=== PATIENT | female | born 1985 | race Hispanic/Latino ===

== ENCOUNTER 2017-01-02 11:27 | Inpatient (IN) | payer OTHER ==
[~2017-01-02] VITALS: Ht 160 cm; Wt 94.5 kg
[~2017-01-02 11:27] MED LIST: ABIL2TAB2 PO; ADDE25CA PO; AMBI10TA PO; LINZ290C PO; LUNE3TAB48 PO; PROZ10CA7 PO; PROZ20CA11 PO; TOPA100T8 PO; TOPI50TA4 PO; TRIL600T PO; WELLTAB40 PO
[2017-01-02 14:09] LABS: MEAN CORPUSCULAR HEMOGLOBIN 29.6 pg (27.0-33.0); MEAN CORPUSCULAR HGB CONC 34.1 g/dl (32.0-36.5); MEAN CORPUSCULAR VOLUME 86.8 fl (80.0-96.0); RED CELL DISTRIBUTION WIDTH 12.8 % (11.5-14.5); WHITE BLOOD COUNT 8.9 K/mm3 (4.0-10.0)
[2017-01-02 14:20] LABS: AMPHETAMINES LEVEL URINE NEGATIVE (NEGATIVE); BENZODIAZEPINES URINE NEGATIVE (NEGATIVE); COCAINE METABOLITE URINE NEGATIVE (NEGATIVE); CONTROL LINE INT CTR LINE PRESENT; METHADONE URINE NEGATIVE (NEGATIVE); OPIATES URINE NEGATIVE (NEGATIVE); TRICYCLIC ANTIDEPRESS URINE NEGATIVE (NEGATIVE)
[2017-01-02 14:35] LABS: ALBUMIN 2.9 GM/DL (3.2-5.2); ALBUMIN/GLOBULIN RATIO 0.73 (1.00-1.93); ALKALINE PHOSPHATASE 70 U/L (45-117); ALT/SGPT 15 U/L (12-78); ANION GAP 11 MEQ/L (8-16); AST/SGOT 11 U/L (15-37); BILIRUBIN,DIRECT < 0.1 MG/DL (0.0-0.2); BILIRUBIN,TOTAL 0.2 MG/DL (0.2-1.0); BLOOD UREA NITROGEN 6 MG/DL (7-18); CALCIUM LEVEL 8.2 MG/DL (8.5-10.1); CARBON DIOXIDE LEVEL 21 MEQ/L (21-32); CHLORIDE LEVEL 108 MEQ/L (98-107); CREATININE FOR GFR 0.46 MG/DL (0.55-1.02); GLOMERULAR FILTRATION RATE > 60.0 (>60); GLUCOSE, FASTING 82 MG/DL (70-105); POTASSIUM SERUM 3.8 MEQ/L (3.5-5.1); SODIUM LEVEL 140 MEQ/L (136-145); TOTAL PROTEIN 6.9 GM/DL (6.4-8.2)
[2017-01-02 15:24] LABS: HCG, SERUM QUANTITATIVE 1782 MIU/ML
[2017-01-02] MEDS ORDERED: PRENTAB55 PO (18:59)
[2017-01-02] MEDS ORDERED: PROM25TA PO (18:59)
[2017-01-02] MEDS ORDERED: DIPH25CA PO (18:59)
[2017-01-02] MEDS ORDERED: ACET25TA5 PO (18:59)
--- NOTE | 2017-01-02 20:35 | EDDOCDS ---
Physician Documentation [facility] Name: Jayne Rivero Age: 31 yrs Sex: Female : 1985 Arrival Date: 01/02/2017 Time: 11:27 Bed [facility] Private MD: Disposition: 01/02/17 18:25 Hospitalization ordered by Davide Lassiter for Inpatient Admission. Preliminary diagnosis is Major depressive disorder, recurrent. - Bed requested for Admit. - Status is Inpatient Admission. sls1 - Condition is Stable. - Problem is an ongoing problem. - Symptoms have worsened. Historical: - Allergies: Morphine (Anaphylaxis); - Home Meds: 1. Prozac 30mg Oral once daily pt hasn't taken since before she was . (Last dose: Unknown) 2. Topamax Unknown Oral pt hasn't taken since before she was . (Last dose: Unknown) 3. adderal Unknown twice a day pt hasn't taken since before she was . (Last dose: Unknown) 4. Ambien 10 mg Oral tab 1 tab once daily pt hasn't taken since before she was . (Last dose: Unknown) 5. Wellbutrin 300 mg oral tab daily pt hasn't taken since before she was . (Last dose: Unknown) - PMHx: Bipolar disorder; - PSHx: none; - Social history: Smoking status: Patient states former smoker of tobacco. No barriers to communication noted. - Family history: Not pertinent. - : The pt / caregiver states he / she is not on anticoagulants. Home medication list is obtained from the patient. - Exposure Risk Screening:: None identified. 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 3 in. (160.02 cm); Pain 4/10; 15:47 BP 139 / 81; Pulse 88; Resp 18; Temp 98.0(O); Pulse Ox 100% on R/A; Pain 0/10; jmb 20:21 BP 120 / 78; Pulse 99; Resp 18; Temp 98.2(T); Pulse Ox 98% ; Pain 7/10; mas 11:30 Body Mass Index 37.20 (95.25 kg, 160.02 cm) jrd MDM: 11:49 REGULAR DIET PLASTIC HUMPHREY+DIET ordered. EDMS 11:50 REGULAR DIET PED PLASTIC HUMPHREY+DIET ordered. EDMS 13:22 Consult PFS/PSA/Physician'S Assistant ordered. br1 13:22 Consult PFS/PSA/Physician'S Assistant: Patient's case requires discussion with on-call br1 Psychiatrist ordered. 13:22 PSA/PFS to call [employer] Sales Representative, to enter patient data on [place] Safe Act if patient br1 involuntarily admitted or transferred for SI or HI ordered. 13:22 Confirm accurate psychiatric medication list and times of last dosage ordered. br1 13:22 Detain Pt Until Medically/PFS Cleared ordered. br1 13:24 Acetaminophen Level Ordered. EDMS 13:24 Basic Metabolic Profile Ordered. EDMS 13:24 Complete Blood Count Ordered. EDMS 13:24 Drug Eval Toxicology ED Only Ordered. EDMS 13:24 Ethyl Alcohol (ethanol) Ordered. EDMS 13:24 Liver Profile Ordered. EDMS 13:24 Salicylate Level Ordered. EDMS 13:24 Thyroid Stimulating Hormone Ordered. EDMS 13:36 Financial registration complete. mm15 13:36 [facility] Payment Agreement was scanned into [employer] and attached to record. mm15 13:59 Consult PFS/PSA/Physician'S Assistant complete. ml4 14:17 Consult PFS/PSA/Physician'S Assistant: Patient's case requires discussion with on-call ml4 Psychiatrist complete. 14:17 PSA/PFS to call [employer] Sales Representative, to enter patient data on [place] Safe [place] if patient ml4 involuntarily admitted or transferred for SI or HI complete. 15:01 Complete Blood Count Reviewed. br1 15:01 Drug Eval Toxicology ED Only Reviewed. br1 15:36 Acetaminophen Level Reviewed. br1 15:36 Basic Metabolic Profile Reviewed. br1 15:36 Liver Profile Reviewed. br1 15:36 Salicylate Level Reviewed. br1 15:36 Thyroid Stimulating Hormone Reviewed. br1 15:36 Ethyl Alcohol (ethanol) Reviewed. br1 15:36 HCG, SERUM QUANTITATIVE Reviewed. br1 15:36 Consult PFS/PSA/Socail Worker: Cleared medically for eval ordered. br1 15:40 Consult PFS/PSA/Socail Worker: Cleared medically for eval complete. ml4 16:33 REGULAR DIET PLASTIC HUMPHREY+DIET ordered. EDMS 17:43 Admit to [facility]: ordered. EDMS 18:12 REGULAR DIET ordered. EDMS 18:13 [facility] Legal paperwork was scanned into [employer] and attached to record. ml4 Signatures: Dispatcher [employer] EDMS Gina Minaya, PSA PSA ml4 Joshua La MD MD br1 Soumya Luna RN RN sls1 Alistair Nunez mm15 Vick Gomez RN RN mb9 The chart was reviewed and I authenticate all verbal orders and agree with the evaluation and treatment provided.Corrections: (The following items were deleted from the chart) 15:01 14:55 HCG, SERUM QUANTITATIVE+LAB ordered. EDMS EDMS Attachments: 13:36 [id number] Payment Agreement mm15 MTDD
--- NOTE | 2017-01-02 20:36 | EDDOCDS ---
Nurse's Notes [facility] Name: Jayne Rivero Age: 31 yrs Sex: Female : 1985 Arrival Date: 01/02/2017 Time: 11:27 Bed [facility] Private MD: Diagnosis: Major depressive disorder, recurrent Presentation: 01/02 11:34 Presenting complaint: Patient states: "I've been communicating with [facility] and I've mb9 been trying to contact [facility] behavioral health and nobody was helping so Dr Angel sent me here. I'm 22 weeks and I haven't been taking my meds and I've been really depressed and not leaving the house and I have a lot of anxiety. Dr Angel told me to come here so that I can be evaluated by a physician here and if they would put me back on my meds he would be ok with it". pt denies SI/HI at this time. Mental Health Triage Level: Level 1- Pt displays no suicidal or homicidal ideations and does not appear to be a danger to self or others. Adult Sepsis Screening: The patient does not have new or worsening altered mentation. Patient's respiratory rate is less than 22. Systolic blood pressure is greater than 100. Patient has a qSOFA score of 0- Negative Sepsis Screen. Suicide/Homicide risk assessment- the patient denies having any suicidal and/or homicidal ideations and does not present with any other emotional, behavioral or mental health complaints. Status: The patient is a dependent. Transition of care: patient was not received from another setting of care. 11:34 Acuity: CRAIG Level 4 mb9 11:34 Method Of Arrival: Walkin/Carried/Asstd mb9 Triage Assessment: 11:40 General: Appears in no apparent distress, Behavior is appropriate for age. Pain: Denies mb9 pain. HIV screening NA for this visit Offered previously. Respiratory: Airway is patent Respiratory effort is even, unlabored. 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 Prozac 30mg Oral once daily pt hasn't taken since before she was . (Last dose: Unknown) 2. Topamax Unknown Oral pt hasn't taken since before she was . (Last dose: Unknown) 3. adderal Unknown twice a day pt hasn't taken since before she was . (Last dose: Unknown) 4. Ambien 10 mg Oral tab 1 tab once daily pt hasn't taken since before she was . (Last dose: Unknown) 5. Wellbutrin 300 mg oral tab daily pt hasn't taken since before she was . (Last dose: Unknown) - PMHx: Bipolar disorder; - PSHx: none; - Social history: Smoking status: Patient states former smoker of tobacco. No barriers to communication noted. - Family history: Not pertinent. - : The pt / caregiver states he / she is not on anticoagulants. Home medication list is obtained from the patient. - Exposure Risk Screening:: None identified. Screenin:11 Screening information is obtained from the patient. Fall risk: No risks identified. mcp Assistance ADL's: requires no assistance with activities of daily living. Abuse/DV Screen: The patient / caregiver reports he/she is: not in a situation that causes fear, pain or injury. Nutritional screening: No deficits noted. Advance Directives: There is no active DNR order. home support is adequate. Assessment: 12:00 General: Appears in no apparent distress, comfortable, Behavior is cooperative. [facility] Neurological: No deficits noted. Respiratory: Airway is patent Respiratory effort is even, unlabored. Derm: Skin is pink, warm & dry. 13:00 General: Appears in no apparent distress, comfortable, Behavior is cooperative. mcp Neurological: No deficits noted. Respiratory: Airway is patent Respiratory effort is even, unlabored. Derm: Skin is pink, warm & dry. 14:00 General: Appears in no apparent distress, comfortable, Behavior is cooperative. [facility] Neurological: No deficits noted. Respiratory: Airway is patent Respiratory effort is even, unlabored. Derm: Skin is pink, warm & dry. 15:35 General: Appears alert and cooperative . responses of adequate content and demeanor. jmk adequate eye contact. FHT 164 and of good quality. reports adequate movement without pain. comfort measures provided. awaiting dispo.. 16:00 General: Appears in no apparent distress, comfortable, Behavior is appropriate for age, ml6 cooperative. Pain: Denies pain. Neurological: No deficits noted. Level of Consciousness is awake, alert, Oriented to person, place, time, Hedge Trimmer are equal bilaterally. Cardiovascular: No deficits noted. Capillary refill < 3 seconds is brisk in bilateral fingers toes Heart tones S1 S2 present. Respiratory: No deficits noted. Airway is patent Respiratory effort is even, unlabored, Respiratory pattern is regular, symmetrical. GI: No deficits noted. Abdomen is flat, non- distended Bowel sounds present X 4 quads. Abd is soft and non tender X 4 quads. 17:00 Reassessment: Patient appears in no apparent distress at this time. Patient denies pain ml6 at this time. Patient states feeling better. Patient states symptoms have improved. patient sleeping intermittently. 18:01 Reassessment: Patient appears in no apparent distress at this time. Patient denies pain ml6 at this time. Patient states feeling better. Patient states symptoms have improved. no change from previous assessment. 20:09 General: Appears in no apparent distress, comfortable, Behavior is appropriate for age, jo3 cooperative. General: Resting quietly on stretcher with eyes closed. security observing . Neurological: Level of Consciousness is awake, alert, Oriented to person, place, time. Cardiovascular: No deficits noted. Respiratory: Airway is patent Respiratory effort is even, unlabored. Derm: Skin is pink, warm & dry. 20:31 General: Appears in no apparent distress, Behavior is appropriate for age, cooperative. sls1 Neurological: No deficits noted. Respiratory: No deficits noted. Mental Health Eval: 12:22 Mental health consult is initiated at 12:15. Status: The patient is a ml4 dependent. Pt is a . [facility] Behavioral Health: The patient is not an established patient of [facility] Behavioral Health. Referral Information: Evaluation referral is generated by Dr. Angel [facility] . The patient was referred for evaluation because hx of Bipolar Disorder, currently not on any medications due being 22 wks . Pt denies SI and HI upon arrival, however is requesting help due to decompensating. . Subjective: The patients chief complaint is Pt states, "I have feelings of not wanting to live." Pt reports feeling overwhelmed with anxiety and has attempted to get into to [facility] to get placed back on medications, but with no luck. Prior to , pt reports taking Prozac, Wellbutrin, Abilify, Ambien, Adderall, and Topamax, yet no longer has a Psychiatrist. She was previously seeking tx with Dr. Cline \\[facility], however office is now closed. According to pt, OB is not willing to re-start medications without approval of a Psychiatrist. Pt is requesting a voluntarily admission to get started on medication to help relieve depressive and anxiety symptoms. She reports having 4 children(ages 9, 8, 5, and 2) and states she is able to care for them, but not herself. Admits having persistent sadness, poor appetite, increase anxiety, not sleeping, refusing to leave household, and vague SI. Pt appears very depressed at bedside and requesting help before symptoms worsen. . Delusions are denied. Patient's mood is anxious, depressed, Hallucinations are denied. Mental Health history: anxiety, Bipolar Disorder, depression, Mental Health Admissions: None. Current Outpatient Mental Health Services: None. Current living environment is Family / Home Support: adequate, is very supportive. The patient currently lives with his / her children. with his / her spouse, . The patient is . Patient presents to Emergency Department with the following symptoms within the past 2 weeks: agitation, anger, anxiety, decreased appetite, depressed mood, feelings of helplessness/hopelessness, vague SI, no plan "not wanting to live." . poor concentration, sleep disturbance - insomnia. Substance abuse: Pt denies. Mental status exam: Patients appearance is appropriate, Patient's behavior is cooperative, Speech is normal. Affect is appropriate. Mood is angry. anxious. depressed. irritable. Hallucinations are denied. Appetite is poor. Memory is good. Energy level is normal. Content of thought is depressive. due vague SI Thought process is Cognitive level is oriented to person, place, time and situation Patient's insight is fair. Judgement is fair. Rapport with interviewer is guarded. Homicidal ideation is denied. pt continues to express vague SI. Narrative: Awaiting medical clearance... 18:17 Disposition: Medically cleared for disposition by Joshua La MD Psychiatric Consult ml4 is performed by phone with Dr Davide Lassiter MD. [facility] Admission Criteria: The patient is experiencing suicidal ideation. The patient requires continuous observation and/or control to protect self, others or property. The patient's care requires a multi-modal treatment plan under close supervision and coordination due to the complexity and severity of the patient's symptoms. The patient requires administration and monitoring of psychoactive medications by skilled medical providers due to the side effects of the psychoactive medications or significant dosage adjustments. Legal Status: Patient's legal status will be Emergency admission: 939. [place] Safe Act: [place] Safe Act is applicable to this patient. The patient poses a risk to self or other and the Nursing Self Propelled Dredge Operator has been notified. He/She will enter the patient's data. DSM-V Differential Diagnosis: Major Depressive Disorder recurrent episode (F33.0) severe (F33.2). Insurance Pre-Certification: Not Required, [facility]. Pt reports being a , however is requesting to be hospitalized to [facility], rather than to be transferred to [facility]. . Family Notification: Family notified of admission to [facility], Notification was given to Spouse . Narrative: Pt reports having Depression after her 4th child was born. Since pt previously suffered from depression, Dr. Lassiter requested pt be involuntarily hospitalized. Awaiting: transfer to [facility]. Vital Signs: 11:30 BP 151 / 82; Pulse 121; Resp 18; Temp 98.9; Pulse Ox 99% on R/A; Weight 95.25 kg (R); jrd Height 5 ft. 3 in. (160.02 cm); Pain 4/10; 15:47 BP 139 / 81; Pulse 88; Resp 18; Temp 98.0(O); Pulse Ox 100% on R/A; Pain 0/10; jmb 20:21 BP 120 / 78; Pulse 99; Resp 18; Temp 98.2(T); Pulse Ox 98% ; Pain 7/10; mas 11:30 Body Mass Index 37.20 (95.25 kg, 160.02 cm) [facility] Vitals: 11:30 Log In Time: January 02, 2017 at 11:30. [facility] ED Course: 11:29 Patient visited by Saravanan Fallon PCA. jrd 11:29 Patient moved to Waiting jrd 11:31 Patient visited by Saravanan Fallon PCA. jrd 11:38 Triage Initiated mb9 11:41 Patient moved to 30 mb9 13:14 Joshua La MD is Attending Physician. br1 13:22 Patient visited by Joshua La MD. br1 13:36 ID-[facility] Payment Agreement was scanned into [employer] and attached to record. mm15 15:11 The patient / caregiver is instructed regarding the plan of care and ED course. Patient mcp has correct armband on for positive identification. Bed in low position. Call light in reach. Adult w/ patient. 15:11 No IV's were initiated during this patient's visit. No procedures done that require mcp assistance. 15:13 Patient visited by Tammi Steele RN. mcp 15:36 Patient visited by Aguilar Molina,GILMER. jmk 15:59 Patient moved to [facility] pjf 16:04 Property removed, secured in belongings bag- Placed in locker #3. pjf 16:09 Patient visited by Daron Valenzuela Security Aide. pjf 16:11 Patient visited by Tammi Steele RN. mcp 16:32 Patient visited by Daron Valenzuela Security Aide. pjf 16:44 Patient visited by Daron Valenzuela Security Aide. pjf 17:07 Patient visited by Saravanan Fallon PCA. jrd 17:36 Patient visited by Saravanan Fallon PCA. jrd 17:46 Patient visited by Saravanan Fallon PCA. jrd 18:00 Psych Safety Check: Location: Psych Room. Visual Assessment: Cooperative. pjf 18:13 [facility] Legal paperwork was scanned into [employer] and attached to record. ml4 18:14 Patient visited by Saravanan Fallon PCA. jrd 18:25 Davide Lassiter MD is Hospitalizing Provider. br1 18:29 Patient visited by Daron Valenzuela Security Aide. pjf 18:41 Patient visited by Colten Romero. mas 18:56 Patient visited by Colten Romero. mas 19:04 Report received from Robbie May RN, assumed care of pt at this time. tm5 19:19 Patient visited by Daron Valenzuela Security Aide. pjf 19:33 Patient visited by Colten Romero. mas 19:45 Patient visited by Colten Romero. mas 20:00 Patient visited by Colten Romero. mas 20:10 Patient visited by Gina Mccord RN. jo3 20:15 Patient visited by Colten Romero. mas 20:30 Patient visited by Colten Romero. mas Attachments: 18:13 [facility] Legal paperwork ml4 Order Results: Lab Order: Acetaminophen Level; SPEC' 01/02/17 13:40 Test: ACETAMINOPHEN LEVEL; Value: < 2.0; Range: 10.0-30.0; Abnormal: Below low normal; Units: UG/ML; Status: F Lab Order: Basic Metabolic Profile; SPEC' 01/02/17 13:40 Test: GLUCOSE, FASTING; Value: 82; Range: 70-105; Units: MG/DL; Status: F Test: BLOOD UREA NITROGEN; Value: 6; Range: 7-18; Abnormal: Below low normal; Units: MG/DL; Status: F Test: CREATININE FOR GFR; Value: 0.46; Range: 0.55-1.02; Abnormal: Below low normal; Units: MG/DL; Status: F Test: GLOMERULAR FILTRATION RATE; Value: > 60.0; Range: >60; Status: F Test: SODIUM LEVEL; Value: 140; Range: 136-145; Units: MEQ/L; Status: F Test: POTASSIUM SERUM; Value: 3.8; Range: 3.5-5.1; Units: MEQ/L; Status: F Test: CHLORIDE LEVEL; Value: 108; Range: 98-107; Abnormal: Above high normal; Units: MEQ/L; Status: F Test: CARBON DIOXIDE LEVEL; Value: 21; Range: 21-32; Units: MEQ/L; Status: F Test: ANION GAP; Value: 11; Range: 8-16; Units: MEQ/L; Status: F Test: CALCIUM LEVEL; Value: 8.2; Range: 8.5-10.1; Abnormal: Below low normal; Units: MG/DL; Status: F Test Note: ; Units are mL/min/1.73 m2 Chronic Kidney Disease Staging per NKF: Stage I & II GFR >=60 Normal to Mildly Decreased Stage III GFR 30-59 Moderately Decreased Stage IV GFR 15-29 Severely Decreased Stage V GFR <15 Very Little GFR Left ESRD GFR <15 on TELEPHONE MECHANIC Lab Order: Complete Blood Count; SPEC' 01/02/17 13:40 Test: WHITE BLOOD COUNT; Value: 8.9; Range: 4.0-10.0; Units: K/mm3; Status: F Test: RED BLOOD COUNT; Value: 4.04; Range: 4.00-5.40; Units: M/mm3; Status: F Test: HEMOGLOBIN; Value: 12.0; Range: 12.0-16.0; Units: g/dl; Status: F Test: HEMATOCRIT; Value: 35.1; Range: 36.0-47.0; Abnormal: Below low normal; Units: %; Status: F Test: MEAN CORPUSCULAR VOLUME; Value: 86.8; Range: 80.0-96.0; Units: fl; Status: F Test: MEAN CORPUSCULAR HEMOGLOBIN; Value: 29.6; Range: 27.0-33.0; Units: pg; Status: F Test: MEAN CORPUSCULAR HGB CONC; Value: 34.1; Range: 32.0-36.5; Units: g/dl; Status: F Test: RED CELL DISTRIBUTION WIDTH; Value: 12.8; Range: 11.5-14.5; Units: %; Status: F Test: PLATELET COUNT, AUTOMATED; Value: 185; Range: 150-450; Units: k/mm3; Status: F Lab Order: Drug Eval Toxicology ED Only; SPEC'M 01/02/17 13:41 Test: AMPHETAMINES LEVEL URINE; Value: NEGATIVE; Range: NEGATIVE; Status: F Test: BARBITURATES URINE; Value: NEGATIVE; Range: NEGATIVE; Status: F Test: BENZODIAZEPINES URINE; Value: NEGATIVE; Range: NEGATIVE; Status: F Test: CANNABINOIDS URINE; Value: NEGATIVE; Range: NEGATIVE; Status: F Test: COCAINE METABOLITE URINE; Value: NEGATIVE; Range: NEGATIVE; Status: F Test: METHADONE URINE; Value: NEGATIVE; Range: NEGATIVE; Status: F Test: OPIATES URINE; Value: NEGATIVE; Range: NEGATIVE; Status: F Test: TRICYCLIC ANTIDEPRESS URINE; Value: NEGATIVE; Range: NEGATIVE; Status: F Test Note: ; ALL PRESUMPTIVE POSITIVE FINDINGS ARE UNCONFIRMED NORMAL VALUES THRESHOLD IN NG/ML AMPHETAMINES 1000 METHAMPHETAMINES 1000 BARBITURATES 300 BENZODIAZEPINES 300 CANNABINOIDS (THC) 50 COCAINE METABOLITE 300 METHADONE 300 OPIATES 300 PHENCYCLIDINE 25 TRICYCLIC ANTIDEPRESSANTS 1000 RESULTS ARE FOR MEDICAL PURPOSES ONLY. ALL URINE SPECIMENS WILL BE SAVED FOR 3 DAYS. IF CONFIRMATION OF A PRESUMPTIVE POSTIVE SCREEN RESULT IS DESIRED, CALL CHEMISTRY ([phone]) AND REQUEST URINE TO BE SENT TO REFERENCE LAB. FOR A LIST OF CLOSELY RELATED COMPOUNDS PLEASE CALL THE LAB. Lab Order: Ethyl Alcohol (ethanol); [facility] 01/02/17 13:40 Test: ETHYL ALCOHOL (ETHANOL); Value: < 0.003; Range: 0.000-0.010; Units: %; Status: F Lab Order: Liver Profile; [facility] 01/02/17 13:40 Test: AST/SGOT; Value: 11; Range: 15-37; Abnormal: Below low normal; Units: U/L; Status: F Test: ALT/SGPT; Value: 15; Range: 12-78; Units: U/L; Status: F Test: ALKALINE PHOSPHATASE; Value: 70; Range: 45-117; Units: U/L; Status: F Test: BILIRUBIN,TOTAL; Value: 0.2; Range: 0.2-1.0; Units: MG/DL; Status: F Test: BILIRUBIN,DIRECT; Value: < 0.1; Range: 0.0-0.2; Units: MG/DL; Status: F Test: TOTAL PROTEIN; Value: 6.9; Range: 6.4-8.2; Units: GM/DL; Status: F Test: ALBUMIN; Value: 2.9; Range: 3.2-5.2; Abnormal: Below low normal; Units: GM/DL; Status: F Test: ALBUMIN/GLOBULIN RATIO; Value: 0.73; Range: 1.00-1.93; Abnormal: Below low normal; Status: F Lab Order: Salicylate Level; [facility] 01/02/17 13:40 Test: SALICYLATE LEVEL; Value: < 1.7; Range: 5.0-30.0; Abnormal: Below low normal; Units: MG/DL; Status: F Lab Order: Thyroid Stimulating Hormone; [facility] 01/02/17 13:40 Test: THYROID STIMULATING HORMONE; Value: 0.300; Range: 0.358-3.740; Abnormal: Below low normal; Units: uIU/ML; Status: F Lab Order: HCG, SERUM QUANTITATIVE; [facility] 01/02/17 13:40 Test: HCG, SERUM QUANTITATIVE; Value: 1782; Units: MIU/ML; Status: F Test Note: ; GESTATIONAL AGE APPROXIMATE HCG RANGE (MIU/ML) 0.2-1 WEEK 5-50 1-2 WEEKS 50-500 2-3 WEEKS 100-5,000 3-4 WEEKS 500-10,000 4-5 WEEKS 1,000-50,000 5-6 WEEKS 10,000-100,000 6-8 WEEKS 15,000-200,000 2-3 MONTHS 10,000-100,000 NON FEMALES LESS THAN 3.0 Patient samples may contain human heterophilic antibodies that could react with immunoassays to give falsely elevated or depressed results. This assay has been designed to minimize interference from heterophilic antibodies. Elevated hCG levels have also been associated with trophoblastic disease and nontrophoblastic neoplasms. The possibility of having these diseases should be considered before a diagnosis of is made. This test is not intended for use as a surrogate marker for aiding in the diagnosis or monitoring the treatment of cancer patients. [employer] [place] methodology. Outcome: 18:25 Decision to Hospitalize by Provider. br1 20:30 Discharge Assessment: Patient awake, alert and oriented x 3. No cognitive and/or sls1 functional deficits noted. Patient verbalized understanding of disposition instructions. patient administered narcotics - no. The following High Risk Discharge criteria are identified: Yes, psych admit. Condition: stable. No special radiology studies were completed. 20:34 Patient left the ED. sls1 Signatures: Aguilar MolinaRN Tammi Gay RN GILMER [facility] Daron Valenzuela, Security Aide MargueriteGina TilleyRN RN jo3 Gina Mniaya, PSA PSA ml4 Joshua La MD MD br1 Michael Barragan RN RN ml6 Colten Romero Shannon RN RN sls1 Alistair Nunez mm15 Elliot Thayer RN RN Saravanan Rodríguez, PAULY METAL POLISHER AND BUFFER APPRENTICE Vick Astudillo,GILMER RN mb9 Maria T Reis,RN RN tm5 Corrections: (The following items were deleted from the chart) 15:01 14:57 HCG, SERUM QUANTITATIVE+LAB sent. [facility] EDNM 15:44 12:22 Status: The patient is a dependent. ml4 ml4 MTDD
[2017-01-02 21:07] VITALS: BP 138/80
[2017-01-02] MEDS: ACETAMINOPHEN TAB 650MG DOSE (2X325MG) PO PRN (22:54)
[2017-01-03 07:00] VITALS: BP 118/58
[2017-01-03] MEDS: ACETAMINOPHEN TAB 650MG DOSE (2X325MG) PO PRN ×2 (07:47→20:14)
[2017-01-03] MEDS: FLUoxetine 10 MG CAP PO SCH (11:29)
[2017-01-03] MEDS: PRENATAL VITAMIN TAB PO SCH (11:29)
--- NOTE | 2017-01-03 11:50 | HPEPDOC ---
Medical History and Physical Date of Admission Jan 02, 2017 at 20:48 History and Physical PCP: Prashant ATTENDING: Dr. Jon Cochran HPI: 31yoF admitted to [facility] for MDD, being medically examined today. Patient is currently 22 weeks . She is following with [facility] TECHNICIAN. She was seen by Dr. Angel 01/02/17. Her next appointment is scheduled 01/18/17. She states she has been feeling well. She has had no complications. She has been having some nausea. She has reflux symptoms and belching. She is being treated with Tums per Pt. She states she has had abnormal thyroid function test during , endocrine referral is pending through her PCP at [facility]. She currently has a oral herpes lesion which is resolving on her left upper lip. Denies any fevers, chills, weakness, fatigue, SAUCEDO, CP, SOB, cough, palpitations, abdominal pain, N/V/D or changes in bowel or bladder habits. 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 ROS: As noted in HPI, otherwise 11pt ROS of systems reviewed and remarkable only for LMP 8/16, currently 22 weeks . PE: GEN: 31yoF, appears stated age. Well-nourished, well developed. No acute distress. Alert and oriented x 3. Pleasant, interactive. HEENT: Normocephalic, atraumatic. Pupils are equal, round, and reactive to light. Extraocular movements are intact. No nystagmus appreciated. Sclera are nonicteric. Conjunctiva without injection. Nose midline. Nasal turbinates without bogginess. EACs both patent BL. TMs both visualized and melvin with good cone of light, no bulging or erythema. No facial asymmetry. Moist mucous membranes. Dentition fair. Pharynx pink and moist, no cobblestoning. Neck supple , trachea midline. No lymphadenopathy or thyromegaly appreciated. CHEST: Regular rate and rhythm, +S1, +S2 LUNGS: Clear to auscultation bilaterally. No wheezes, rales, or rhonchi. Breathing appears symmetric and easy. Patient is speaking in full sentences. No accessory muscle use. ABD: protuberant,Round, soft, non-tender, non-distended. +Bowel sounds throughout. No rebound or guarding. No costovertebral angle tenderness. EXT: Pulses 2+ bilaterally dorsalis pedis and radial. No lower extremity edema appreciated. SKIN: [place], dry, warm. Capillary refill <2sec. No rashes. NEURO: Alert and oriented x 3. Cranial nerves III-XII are intact. No focal deficits appreciated. EK03/02/16 SR 84 bpm. A&P: 31yoF admitted to [facility] for MDD 1. Psych. Plan per Psychiatry. EKG on file. 2. . Currently 22 weeks. 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 Last appointment 01/02/17. Next appointment scheduled 01/18/17. Continue with vitamin. 3. Abnormal TFT during . This is being followed by PCP at [facility]. She has been referred to Endocrine through her PCP at [place], referral pending 3. GERD. Continue Tums BID as needed. 4. Follow up with PCP on discharge. [facility]. 5. Staff member present throughout exam, Allison SCHERER. Vital Signs Vital Signs Label Value Date Time Patient Temperature 97.2 degrees F 01/03/17 0700 Temperature Source Tympanic 01/03/17 0700 Pulse 97 01/03/17 0700 Respiratory Rate 18 bpm 01/03/17 0700 Blood Pressure Assessment 118/58 (78) 01/03/17 0700 Laboratory Data Labs 24H Laboratory Tests 2 01/02/17 13:40: Acetaminophen Level < 2.0L, Aspartate Amino Transf (AST/SGOT) 11L, Alanine Aminotransferase (ALT/SGPT) 15, Alkaline Phosphatase 70, Total Bilirubin 0.2, Direct Bilirubin < 0.1, Albumin 2.9L, Albumin/Globulin Ratio 0.73L, Anion Gap 11 , Calcium Level 8.2L, Ethyl Alcohol Level < 0.003, Glomerular Filtration Rate > 60.0, Human Chorionic Gonadotropin, Quant 1782, Salicylates Level < 1.7L, Thyroid Stimulating Hormone (TSH) 0.300L, Total Protein 6.9 01/02/17 13:41: Urine Amphetamine Level NEGATIVE, Urine Benzodiazepines Screen NEGATIVE, Urine Cannabinoids NEGATIVE, Urine Cocaine Metabolite NEGATIVE, Urine Opiates Screen NEGATIVE, Urine Barbiturates, Qualitative NEGATIVE, Urine Methadone Screen NEGATIVE, Urine Tricyclic Antidepressants NEGATIVE CBC/BMP Laboratory Tests 01/02/17 13:40 Red Blood Count 4.04, Mean Corpuscular Volume 86.8, Mean Corpuscular Hemoglobin 29.6, Mean Corpuscular Hemoglobin Concent 34.1, Red Cell Distribution Width 12.8 Home Medications Scheduled Multivitamins/ ( 19) 1 Tab Tab 1 TAB PO DAILY Scheduled PRN (Acetaminophen Pm Extra St 500-25 mg) 1 Tab Tab 1 TAB PO QHS PRN PRN SLEEP Diphenhydramine HCl (Diphenhydramine HCl) 25 Mg Cap 25 MG PO QHS PRN PRN SLEEP Promethazine HCl (Promethazine HCl) 25 Mg Tab 25 MG PO QHS PRN PRN SLEEP Allergies Coded Allergies: Morphine (Verified Allergy, Severe, HIVES AND TROUBLE BREATHING, 01/24/16) Edwige Perdomo Jan 03, 2017 11:50
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
[2017-01-03] MEDS: CALCIUM CARBONATE 500 MG CHEW U/D PO PRN ×2 (15:21→20:14)
[2017-01-03 18:00] VITALS: BP 109/58
[2017-01-03] MEDS: diphenhydrAMINE 50 MG CAP PO PRN (20:14)
[2017-01-04 06:24] VITALS: BP 113/56
[2017-01-04] MEDS: CALCIUM CARBONATE 500 MG CHEW U/D PO PRN ×3 (08:58→20:33)
[2017-01-04] MEDS: FLUoxetine 10 MG CAP PO SCH (08:58)
[2017-01-04] MEDS: PRENATAL VITAMIN TAB PO SCH (08:58)
[2017-01-04] MEDS ORDERED: ONDANSETRON 4 MG TAB (S0181) PO PRN (10:30)
[2017-01-04 18:00] VITALS: BP 107/59
--- NOTE | 2017-01-04 19:10 | IPN ---
DATE: 01/04/2017 HISTORY: A 31-year-old female with history of bipolar disorder and depression. She is 22 weeks . Was admitted with symptoms of severe depression, overwhelmed anxiety, and suicidal thoughts. MEDICATIONS: - Prozac 10 mg by mouth every morning - Benadryl 50 mg by mouth at bedtime as needed for insomnia SUBJECTIVE: "I feel about the same." OBJECTIVE: No major changes from yesterday. The patient continues to feel depressed, anxious, with psychomotor retardation, poor, soft and monotone speech. She is tolerating well Prozac. Was able to sleep well with 50 mg of Benadryl last night. No evidence of psychotic symptoms. No auditory or visual hallucinations or delusions. MENTAL STATUS EXAMINATION: The patient is dressed in [facility]. The patient is cooperative during the exam. Has fair eye contact. Speech is soft and monotone. Mood is depressed and anxious. Affect is restricted. No delusions or hallucinations. Memory is fair. The patient is fully oriented. Associations are intact. Thinking is logical. Thought content is appropriate. The patient is able to contract for safety in our unit. Insight and judgment are fair. ASSESSMENT: Bipolar disorder, depressed episode. PLAN: 1. Continue with Prozac 10 mg by mouth every morning. 2. Continue with Benadryl 50 mg by mouth at bedtime. 3. Continue close observation.
[2017-01-04] MEDS: ACETAMINOPHEN TAB 650MG DOSE (2X325MG) PO PRN (20:32)
[2017-01-04] MEDS: diphenhydrAMINE 50 MG CAP PO PRN (20:32)
--- NOTE | 2017-01-04 21:35 | EDDOCDS ---
Physician Documentation [facility] Name: Jayne [place] Age: 31 yrs Sex: Female : 1985 Arrival Date: 01/02/2017 Time: 11:27 Bed [facility] Private MD: Disposition: 01/02/17 18:25 Hospitalization ordered by [facility] Lassiter for Inpatient Admission. Preliminary diagnosis is Major depressive disorder, recurrent. - Bed requested for Admit. - Status is Inpatient Admission. sls1 - Condition is Stable. - Problem is an ongoing problem. - Symptoms have worsened. Historical: - Allergies: Morphine (Anaphylaxis); - Home Meds: 1. Prozac 30mg Oral once daily pt hasn't taken since before she was . (Last dose: Unknown) 2. Topamax Unknown Oral pt hasn't taken since before she was . (Last dose: Unknown) 3. adderal Unknown twice a day pt hasn't taken since before she was . (Last dose: Unknown) 4. Ambien 10 mg Oral tab 1 tab once daily pt hasn't taken since before she was . (Last dose: Unknown) 5. Wellbutrin 300 mg oral tab daily pt hasn't taken since before she was . (Last dose: Unknown) - PMHx: Bipolar disorder; - PSHx: none; - Social history: Smoking status: Patient states former smoker of tobacco. No barriers to communication noted. - Family history: Not pertinent. - : The pt / caregiver states he / she is not on anticoagulants. Home medication list is obtained from the patient. - Exposure Risk Screening:: None identified. 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 3 in. (160.02 cm); Pain 4/10; 15:47 BP 139 / 81; Pulse 88; Resp 18; Temp 98.0(O); Pulse Ox 100% on R/A; Pain 0/10; jmb 20:21 BP 120 / 78; Pulse 99; Resp 18; Temp 98.2(T); Pulse Ox 98% ; Pain 7/10; mas 11:30 Body Mass Index 37.20 (95.25 kg, 160.02 cm) jrd MDM: 11:49 REGULAR DIET PLASTIC HUMPHREY+DIET ordered. EDMS 11:50 REGULAR DIET PED PLASTIC HUMPHREY+DIET ordered. EDMS 13:22 Consult PFS/PSA/Wood Barker ordered. br1 13:22 Consult PFS/PSA/Wood Barker: Patient's case requires discussion with on-call br1 Psychiatrist ordered. 13:22 PSA/PFS to call Nursing [employer]ricator, to enter patient data on [place] Safe Act if patient br1 involuntarily admitted or transferred for SI or HI ordered. 13:22 Confirm accurate psychiatric medication list and times of last dosage ordered. br1 13:22 Detain Pt Until Medically/PFS Cleared ordered. br1 13:24 Acetaminophen Level Ordered. EDMS 13:24 Basic Metabolic Profile Ordered. EDMS 13:24 Complete Blood Count Ordered. EDMS 13:24 Drug Eval Toxicology ED Only Ordered. EDMS 13:24 Ethyl Alcohol (ethanol) Ordered. EDMS 13:24 Liver Profile Ordered. EDMS 13:24 Salicylate Level Ordered. EDMS 13:24 Thyroid Stimulating Hormone Ordered. EDMS 13:36 Financial registration complete. mm15 13:36 [facility] Payment Agreement was scanned into [employer] and attached to record. mm15 13:59 Consult PFS/PSA/Wood Barker complete. ml4 14:17 Consult PFS/PSA/Wood Barker: Patient's case requires discussion with on-call ml4 Psychiatrist complete. 14:17 PSA/PFS to call Nursing [employer] Steel Fabricator, to enter patient data on [place] Safe [place] if patient ml4 involuntarily admitted or transferred for SI or HI complete. 15:01 Complete Blood Count Reviewed. br1 15:01 Drug Eval Toxicology ED Only Reviewed. br1 15:36 Acetaminophen Level Reviewed. br1 15:36 Basic Metabolic Profile Reviewed. br1 15:36 Liver Profile Reviewed. br1 15:36 Salicylate Level Reviewed. br1 15:36 Thyroid Stimulating Hormone Reviewed. br1 15:36 Ethyl Alcohol (ethanol) Reviewed. br1 15:36 HCG, SERUM QUANTITATIVE Reviewed. br1 15:36 Consult PFS/PSA/Socail Worker: Cleared medically for eval ordered. br1 15:40 Consult PFS/PSA/Socail Worker: Cleared medically for eval complete. ml4 16:33 REGULAR DIET PLASTIC HUMPHREY+DIET ordered. EDMS 17:43 Admit to [facility]: ordered. EDMS 18:12 REGULAR DIET ordered. EDMS 18:13 [facility] Legal paperwork was scanned into [employer] and attached to record. ml4 01/03 13:06 T-Sheet-- Draft Copy was scanned into [employer] and attached to record. gb Signatures: Dispatcher [employer] EDMS Halima Hernández, Reg Reg gb Rei, Gina, PSA PSA ml4 Joshua La MD MD br1 Soumya Luna RN RN sls1 Alistair Nunez mm15 Vick Gomez,RN RN mb9 The chart was reviewed and I authenticate all verbal orders and agree with the evaluation and treatment provided.Corrections: (The following items were deleted from the chart) 01/02 15:01 14:55 HCG, SERUM QUANTITATIVE+LAB ordered. EDMS EDMS Attachments: 13:36 [place] Payment Agreement mm15 01/03 13:06 T-Sheet-- Draft Copy gb Chart Complete MTDD
--- NOTE | 2017-01-04 21:35 | EDDOCDS ---
Nurse's Notes [facility] Name: Jayne Rivero Age: 31 yrs Sex: Female : 1985 Arrival Date: 01/02/2017 Time: 11:27 Bed [facility] Private MD: Diagnosis: Major depressive disorder, recurrent Presentation: 01/02 11:34 Presenting complaint: Patient states: "I've been communicating with [facility] and I've mb9 been trying to contact [facility] behavioral health and nobody was helping so Dr Angel sent me here. I'm 22 weeks and I haven't been taking my meds and I've been really depressed and not leaving the house and I have a lot of anxiety. Dr Angel told me to come here so that I can be evaluated by a physician here and if they would put me back on my meds he would be ok with it". pt denies SI/HI at this time. Mental Health Triage Level: Level 1- Pt displays no suicidal or homicidal ideations and does not appear to be a danger to self or others. Adult Sepsis Screening: The patient does not have new or worsening altered mentation. Patient's respiratory rate is less than 22. Systolic blood pressure is greater than 100. Patient has a qSOFA score of 0- Negative Sepsis Screen. Suicide/Homicide risk assessment- the patient denies having any suicidal and/or homicidal ideations and does not present with any other emotional, behavioral or mental health complaints. Status: The patient is a dependent. Transition of care: patient was not received from another setting of care. 11:34 Acuity: CRAIG Level 4 mb9 11:34 Method Of Arrival: Walkin/Carried/Asstd mb9 Triage Assessment: 11:40 General: Appears in no apparent distress, Behavior is appropriate for age. Pain: Denies mb9 pain. HIV screening NA for this visit Offered previously. Respiratory: Airway is patent Respiratory effort is even, unlabored. CREDIT CONTROL MANAGER: 11:40 LMP 06/2016 mb9 Historical: - Allergies: Morphine (Anaphylaxis); - Home Meds: 1. Prozac 30mg Oral once daily pt hasn't taken since before she was . (Last dose: Unknown) 2. Topamax Unknown Oral pt hasn't taken since before she was . (Last dose: Unknown) 3. adderal Unknown twice a day pt hasn't taken since before she was . (Last dose: Unknown) 4. Ambien 10 mg Oral tab 1 tab once daily pt hasn't taken since before she was . (Last dose: Unknown) 5. Wellbutrin 300 mg oral tab daily pt hasn't taken since before she was . (Last dose: Unknown) - PMHx: Bipolar disorder; - PSHx: none; - Social history: Smoking status: Patient states former smoker of tobacco. No barriers to communication noted. - Family history: Not pertinent. - : The pt / caregiver states he / she is not on anticoagulants. Home medication list is obtained from the patient. - Exposure Risk Screening:: None identified. Screenin:11 Screening information is obtained from the patient. Fall risk: No risks identified. mcp Assistance ADL's: requires no assistance with activities of daily living. Abuse/DV Screen: The patient / caregiver reports he/she is: not in a situation that causes fear, pain or injury. Nutritional screening: No deficits noted. Advance Directives: There is no active DNR order. home support is adequate. Assessment: 12:00 General: Appears in no apparent distress, comfortable, Behavior is cooperative. [facility] Neurological: No deficits noted. Respiratory: Airway is patent Respiratory effort is even, unlabored. Derm: Skin is pink, warm & dry. 13:00 General: Appears in no apparent distress, comfortable, Behavior is cooperative. mcp Neurological: No deficits noted. Respiratory: Airway is patent Respiratory effort is even, unlabored. Derm: Skin is pink, warm & dry. 14:00 General: Appears in no apparent distress, comfortable, Behavior is cooperative. [facility] Neurological: No deficits noted. Respiratory: Airway is patent Respiratory effort is even, unlabored. Derm: Skin is pink, warm & dry. 15:35 General: Appears alert and cooperative . responses of adequate content and demeanor. jmk adequate eye contact. FHT 164 and of good quality. reports adequate movement without pain. comfort measures provided. awaiting dispo.. 16:00 General: Appears in no apparent distress, comfortable, Behavior is appropriate for age, ml6 cooperative. Pain: Denies pain. Neurological: No deficits noted. Level of Consciousness is awake, alert, Oriented to person, place, time, Bobbin Cleaner are equal bilaterally. Cardiovascular: No deficits noted. Capillary refill < 3 seconds is brisk in bilateral fingers toes Heart tones S1 S2 present. Respiratory: No deficits noted. Airway is patent Respiratory effort is even, unlabored, Respiratory pattern is regular, symmetrical. GI: No deficits noted. Abdomen is flat, non- distended Bowel sounds present X 4 quads. Abd is soft and non tender X 4 quads. 17:00 Reassessment: Patient appears in no apparent distress at this time. Patient denies pain ml6 at this time. Patient states feeling better. Patient states symptoms have improved. patient sleeping intermittently. 18:01 Reassessment: Patient appears in no apparent distress at this time. Patient denies pain ml6 at this time. Patient states feeling better. Patient states symptoms have improved. no change from previous assessment. 20:09 General: Appears in no apparent distress, comfortable, Behavior is appropriate for age, jo3 cooperative. General: Resting quietly on stretcher with eyes closed. security observing . Neurological: Level of Consciousness is awake, alert, Oriented to person, place, time. Cardiovascular: No deficits noted. Respiratory: Airway is patent Respiratory effort is even, unlabored. Derm: Skin is pink, warm & dry. 20:31 General: Appears in no apparent distress, Behavior is appropriate for age, cooperative. sls1 Neurological: No deficits noted. Respiratory: No deficits noted. Mental Health Eval: 12:22 Mental health consult is initiated at 12:15. Status: The patient is a ml4 dependent. Pt is a . [facility]: The patient is not an established patient of [facility]. Referral Information: Evaluation referral is generated by Dr. Angel \\[facility] . The patient was referred for evaluation because hx of Bipolar Disorder, currently not on any medications due being 22 wks . Pt denies SI and HI upon arrival, however is requesting help due to decompensating. . Subjective: The patients chief complaint is Pt states, "I have feelings of not wanting to live." Pt reports feeling overwhelmed with anxiety and has attempted to get into to [facility] to get placed back on medications, but with no luck. Prior to , pt reports taking Prozac, Wellbutrin, Abilify, Ambien, Adderall, and Topamax, yet no longer has a Psychiatrist. She was previously seeking tx with Dr. Cline [facility], however office is now closed. According to pt, OB is not willing to re-start medications without approval of a Psychiatrist. Pt is requesting a voluntarily admission to get started on medication to help relieve depressive and anxiety symptoms. She reports having 4 children(ages 9, 8, 5, and 2) and states she is able to care for them, but not herself. Admits having persistent sadness, poor appetite, increase anxiety, not sleeping, refusing to leave household, and vague SI. Pt appears very depressed at bedside and requesting help before symptoms worsen. . Delusions are denied. Patient's mood is anxious, depressed, Hallucinations are denied. Mental Health history: anxiety, Bipolar Disorder, depression, Mental Health Admissions: None. Current Outpatient Mental Health Services: None. Current living environment is Family / Home Support: adequate, is very supportive. The patient currently lives with his / her children. with his / her spouse, . The patient is . Patient presents to Emergency Department with the following symptoms within the past 2 weeks: agitation, anger, anxiety, decreased appetite, depressed mood, feelings of helplessness/hopelessness, vague SI, no plan "not wanting to live." . poor concentration, sleep disturbance - insomnia. Substance abuse: Pt denies. Mental status exam: Patients appearance is appropriate, Patient's behavior is cooperative, Speech is normal. Affect is appropriate. Mood is angry. anxious. depressed. irritable. Hallucinations are denied. Appetite is poor. Memory is good. Energy level is normal. Content of thought is depressive. due vague SI Thought process is Cognitive level is oriented to person, place, time and situation Patient's insight is fair. Judgement is fair. Rapport with interviewer is guarded. Homicidal ideation is denied. pt continues to express vague SI. Narrative: Awaiting medical clearance... 18:17 Disposition: Medically cleared for disposition by Joshua La MD Psychiatric Consult ml4 is performed by phone with Dr Davide Lassiter MD. [facility] Admission Criteria: The patient is experiencing suicidal ideation. The patient requires continuous observation and/or control to protect self, others or property. The patient's care requires a multi-modal treatment plan under close supervision and coordination due to the complexity and severity of the patient's symptoms. The patient requires administration and monitoring of psychoactive medications by skilled medical providers due to the side effects of the psychoactive medications or significant dosage adjustments. Legal Status: Patient's legal status will be Emergency admission: 939. [place] Safe Act: [place] Safe Act is applicable to this patient. The patient poses a risk to self or other and the Nursing Industrial Engineer has been notified. He/She will enter the patient's data. DSM-V Differential Diagnosis: Major Depressive Disorder recurrent episode (F33.0) severe (F33.2). Insurance Pre-Certification: Not Required, [facility]care. Pt reports being a , however is requesting to be hospitalized to [facility], rather than to be transferred to [facility]. . Family Notification: Family notified of admission to [facility], Notification was given to Spouse . Narrative: Pt reports having Depression after her 4th child was born. Since pt previously suffered from depression, Dr. Lassiter requested pt be involuntarily hospitalized. Awaiting: transfer to [facility]. Vital Signs: 11:30 BP 151 / 82; Pulse 121; Resp 18; Temp 98.9; Pulse Ox 99% on R/A; Weight 95.25 kg (R); jrd Height 5 ft. 3 in. (160.02 cm); Pain 4/10; 15:47 BP 139 / 81; Pulse 88; Resp 18; Temp 98.0(O); Pulse Ox 100% on R/A; Pain 0/10; jmb 20:21 BP 120 / 78; Pulse 99; Resp 18; Temp 98.2(T); Pulse Ox 98% ; Pain 7/10; mas 11:30 Body Mass Index 37.20 (95.25 kg, 160.02 cm) [facility] Vitals: 11:30 Log In Time: January 02, 2017 at 11:30. [facility] ED Course: 11:29 Patient visited by Saravanan Fallon PCA. jrd 11:29 Patient moved to Waiting jrd 11:31 Patient visited by Saravanan Fallon PCA. jrd 11:38 Triage Initiated mb9 11:41 Patient moved to 30 mb9 13:14 Joshua La MD is Attending Physician. br1 13:22 Patient visited by Joshua La MD. br1 13:36 [facility] Payment Agreement was scanned into [employer] and attached to record. mm15 15:11 The patient / caregiver is instructed regarding the plan of care and ED course. Patient mcp has correct armband on for positive identification. Bed in low position. Call light in reach. Adult w/ patient. 15:11 No IV's were initiated during this patient's visit. No procedures done that require mcp assistance. 15:13 Patient visited by Tammi Steele RN. mcp 15:36 Patient visited by Aguilar Molina,GILMER. jmk 15:59 Patient moved to [facility] pjf 16:04 Property removed, secured in belongings bag- Placed in locker #3. pjf 16:09 Patient visited by Daron Valenzuela Security Aide. pjf 16:11 Patient visited by Tammi Steele RN. mcp 16:32 Patient visited by Daron Valenzuela Security Aide. pjf 16:44 Patient visited by Daron Valenzuela Security Aide. pjf 17:07 Patient visited by Saravanan Fallon PCA. jrd 17:36 Patient visited by Saravanan Fallon PCA. jrd 17:46 Patient visited by Saravanan Fallon PCA. jrd 18:00 Psych Safety Check: Location: Psych Room. Visual Assessment: Cooperative. pjf 18:13 [facility] Legal paperwork was scanned into Intell[employer] and attached to record. ml4 18:14 Patient visited by Saravanan Fallon PCA. jrd 18:25 Davide Lassiter MD is Hospitalizing Provider. br1 18:29 Patient visited by Daron Valenzuela Security Aide. pjf 18:41 Patient visited by Colten Romero. mas 18:56 Patient visited by Colten Romero. mas 19:04 Report received from Robbie May RN, assumed care of pt at this time. tm5 19:19 Patient visited by Daron Valenzuela Security Aide. pjf 19:33 Patient visited by Colten Romero. mas 19:45 Patient visited by Colten Romero. mas 20:00 Patient visited by Colten Romero. mas 20:10 Patient visited by Gina Mccord RN. jo3 20:15 Patient visited by Colten Romero. mas 20:30 Patient visited by Colten Romero. mas 01/03 13:06 T-Sheet-- Draft Copy was scanned into Intellinote and attached to record. gb Attachments: 18:13 E Legal paperwork ml4 Order Results: Lab Order: Acetaminophen Level; SPEC'M 01/02/17 13:40 Test: ACETAMINOPHEN LEVEL; Value: < 2.0; Range: 10.0-30.0; Abnormal: Below low normal; Units: UG/ML; Status: F Lab Order: Basic Metabolic Profile; SPEC'M 01/02/17 13:40 Test: GLUCOSE, FASTING; Value: 82; Range: 70-105; Units: MG/DL; Status: F Test: BLOOD UREA NITROGEN; Value: 6; Range: 7-18; Abnormal: Below low normal; Units: MG/DL; Status: F Test: CREATININE FOR GFR; Value: 0.46; Range: 0.55-1.02; Abnormal: Below low normal; Units: MG/DL; Status: F Test: GLOMERULAR FILTRATION RATE; Value: > 60.0; Range: >60; Status: F Test: SODIUM LEVEL; Value: 140; Range: 136-145; Units: MEQ/L; Status: F Test: POTASSIUM SERUM; Value: 3.8; Range: 3.5-5.1; Units: MEQ/L; Status: F Test: CHLORIDE LEVEL; Value: 108; Range: 98-107; Abnormal: Above high normal; Units: MEQ/L; Status: F Test: CARBON DIOXIDE LEVEL; Value: 21; Range: 21-32; Units: MEQ/L; Status: F Test: ANION GAP; Value: 11; Range: 8-16; Units: MEQ/L; Status: F Test: CALCIUM LEVEL; Value: 8.2; Range: 8.5-10.1; Abnormal: Below low normal; Units: MG/DL; Status: F Test Note: ; Units are mL/min/1.73 m2 Chronic Kidney Disease Staging per NKF: Stage I & II GFR >=60 Normal to Mildly Decreased Stage III GFR 30-59 Moderately Decreased Stage IV GFR 15-29 Severely Decreased Stage V GFR <15 Very Little GFR Left ESRD GFR <15 on TROUBLE LOCATER Lab Order: Complete Blood Count; SPEC'M 01/02/17 13:40 Test: WHITE BLOOD COUNT; Value: 8.9; Range: 4.0-10.0; Units: K/mm3; Status: F Test: RED BLOOD COUNT; Value: 4.04; Range: 4.00-5.40; Units: M/mm3; Status: F Test: HEMOGLOBIN; Value: 12.0; Range: 12.0-16.0; Units: g/dl; Status: F Test: HEMATOCRIT; Value: 35.1; Range: 36.0-47.0; Abnormal: Below low normal; Units: %; Status: F Test: MEAN CORPUSCULAR VOLUME; Value: 86.8; Range: 80.0-96.0; Units: fl; Status: F Test: MEAN CORPUSCULAR HEMOGLOBIN; Value: 29.6; Range: 27.0-33.0; Units: pg; Status: F Test: MEAN CORPUSCULAR HGB CONC; Value: 34.1; Range: 32.0-36.5; Units: g/dl; Status: F Test: RED CELL DISTRIBUTION WIDTH; Value: 12.8; Range: 11.5-14.5; Units: %; Status: F Test: PLATELET COUNT, AUTOMATED; Value: 185; Range: 150-450; Units: k/mm3; Status: F Lab Order: Drug Eval Toxicology ED Only; SPEC'M 01/02/17 13:41 Test: AMPHETAMINES LEVEL URINE; Value: NEGATIVE; Range: NEGATIVE; Status: F Test: BARBITURATES URINE; Value: NEGATIVE; Range: NEGATIVE; Status: F Test: BENZODIAZEPINES URINE; Value: NEGATIVE; Range: NEGATIVE; Status: F Test: CANNABINOIDS URINE; Value: NEGATIVE; Range: NEGATIVE; Status: F Test: COCAINE METABOLITE URINE; Value: NEGATIVE; Range: NEGATIVE; Status: F Test: METHADONE URINE; Value: NEGATIVE; Range: NEGATIVE; Status: F Test: OPIATES URINE; Value: NEGATIVE; Range: NEGATIVE; Status: F Test: TRICYCLIC ANTIDEPRESS URINE; Value: NEGATIVE; Range: NEGATIVE; Status: F Test Note: ; ALL PRESUMPTIVE POSITIVE FINDINGS ARE UNCONFIRMED NORMAL VALUES THRESHOLD IN NG/ML AMPHETAMINES 1000 METHAMPHETAMINES 1000 BARBITURATES 300 BENZODIAZEPINES 300 CANNABINOIDS (THC) 50 COCAINE METABOLITE 300 METHADONE 300 OPIATES 300 PHENCYCLIDINE 25 TRICYCLIC ANTIDEPRESSANTS 1000 RESULTS ARE FOR MEDICAL PURPOSES ONLY. ALL URINE SPECIMENS WILL BE SAVED FOR 3 DAYS. IF CONFIRMATION OF A PRESUMPTIVE POSTIVE SCREEN RESULT IS DESIRED, CALL CHEMISTRY ([phone]) AND REQUEST URINE TO BE SENT TO REFERENCE LAB. FOR A LIST OF CLOSELY RELATED COMPOUNDS PLEASE CALL THE LAB. Lab Order: Ethyl Alcohol (ethanol); 01/02/17 13:40 Test: ETHYL ALCOHOL (ETHANOL); Value: < 0.003; Range: 0.000-0.010; Units: %; Status: F Lab Order: Liver Profile; 01/02/17 13:40 Test: AST/SGOT; Value: 11; Range: 15-37; Abnormal: Below low normal; Units: U/L; Status: F Test: ALT/SGPT; Value: 15; Range: 12-78; Units: U/L; Status: F Test: ALKALINE PHOSPHATASE; Value: 70; Range: 45-117; Units: U/L; Status: F Test: BILIRUBIN,TOTAL; Value: 0.2; Range: 0.2-1.0; Units: MG/DL; Status: F Test: BILIRUBIN,DIRECT; Value: < 0.1; Range: 0.0-0.2; Units: MG/DL; Status: F Test: TOTAL PROTEIN; Value: 6.9; Range: 6.4-8.2; Units: GM/DL; Status: F Test: ALBUMIN; Value: 2.9; Range: 3.2-5.2; Abnormal: Below low normal; Units: GM/DL; Status: F Test: ALBUMIN/GLOBULIN RATIO; Value: 0.73; Range: 1.00-1.93; Abnormal: Below low normal; Status: F Lab Order: Salicylate Level; 01/02/17 13:40 Test: SALICYLATE LEVEL; Value: < 1.7; Range: 5.0-30.0; Abnormal: Below low normal; Units: MG/DL; Status: F Lab Order: Thyroid Stimulating Hormone; 01/02/17 13:40 Test: THYROID STIMULATING HORMONE; Value: 0.300; Range: 0.358-3.740; Abnormal: Below low normal; Units: uIU/ML; Status: F Lab Order: HCG, SERUM QUANTITATIVE; SPEC01/02/17 13:40 Test: HCG, SERUM QUANTITATIVE; Value: 1782; Units: MIU/ML; Status: F Test Note: ; GESTATIONAL AGE APPROXIMATE HCG RANGE (MIU/ML) 0.2-1 WEEK 5-50 1-2 WEEKS 50-500 2-3 WEEKS 100-5,000 3-4 WEEKS 500-10,000 4-5 WEEKS 1,000-50,000 5-6 WEEKS 10,000-100,000 6-8 WEEKS 15,000-200,000 2-3 MONTHS 10,000-100,000 NON FEMALES LESS THAN 3.0 Patient samples may contain human heterophilic antibodies that could react with immunoassays to give falsely elevated or depressed results. This assay has been designed to minimize interference from heterophilic antibodies. Elevated hCG levels have also been associated with trophoblastic disease and nontrophoblastic neoplasms. The possibility of having these diseases should be considered before a diagnosis of is made. This test is not intended for use as a surrogate marker for aiding in the diagnosis or monitoring the treatment of cancer patients. [employer] methodology. Outcome: 01/02 18:25 Decision to Hospitalize by Provider. br1 20:30 Discharge Assessment: Patient awake, alert and oriented x 3. No cognitive and/or sls1 functional deficits noted. Patient verbalized understanding of disposition instructions. patient administered narcotics - no. The following High Risk Discharge criteria are identified: Yes, psych admit. Condition: stable. No special radiology studies were completed. 20:34 Patient left the ED. sls1 Signatures: Aguilar Molina RN RN jmk Peters, Mary RN Halima Constantino mcp, Saw Reg Bianca, Daron, Security Aide [facility] Gina Mccord RN RN jo3 Gina Minaya, PSA PSA ml4 Joshua La MD MD br1 Michael Barragan, RN RN ml6 Colten Romero Shannon, RN RN sls1 Alistair Nunez mm15 Elliot Thayer RN RN Saravanan Rodríguez, NEUROLOGY EPILEPSY PHYSICIAN NEUROLOGY EPILEPSY PHYSICIAN d Vick Gomez,RN RN mb9 Maria T ReisRN RN tm5 Corrections: (The following items were deleted from the chart) 15:01 14:57 HCG, SERUM QUANTITATIVE+LAB sent. [facility] 15:44 12:22 Status: The patient is a dependent. ml4 ml4 Chart Complete MTDD
--- NOTE | 2017-01-04 21:35 | EDDOCDS ---
Physician Documentation [facility] Name: Jayne Rivero Age: 31 yrs Sex: Female : 1985 Arrival Date: 01/02/2017 Time: 11:27 Bed [facility] Private MD: Disposition: 01/02/17 18:25 Hospitalization ordered by Davide Lassiter for Inpatient Admission. Preliminary diagnosis is Major depressive disorder, recurrent. - Bed requested for Admit. - Status is Inpatient Admission. sls1 - Condition is Stable. - Problem is an ongoing problem. - Symptoms have worsened. Historical: - Allergies: Morphine (Anaphylaxis); - Home Meds: 1. Prozac 30mg Oral once daily pt hasn't taken since before she was . (Last dose: Unknown) 2. Topamax Unknown Oral pt hasn't taken since before she was . (Last dose: Unknown) 3. adderal Unknown twice a day pt hasn't taken since before she was . (Last dose: Unknown) 4. Ambien 10 mg Oral tab 1 tab once daily pt hasn't taken since before she was . (Last dose: Unknown) 5. Wellbutrin 300 mg oral tab daily pt hasn't taken since before she was . (Last dose: Unknown) - PMHx: Bipolar disorder; - PSHx: none; - Social history: Smoking status: Patient states former smoker of tobacco. No barriers to communication noted. - Family history: Not pertinent. - : The pt / caregiver states he / she is not on anticoagulants. Home medication list is obtained from the patient. - Exposure Risk Screening:: None identified. 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 3 in. (160.02 cm); Pain 4/10; 15:47 BP 139 / 81; Pulse 88; Resp 18; Temp 98.0(O); Pulse Ox 100% on R/A; Pain 0/10; jmb 20:21 BP 120 / 78; Pulse 99; Resp 18; Temp 98.2(T); Pulse Ox 98% ; Pain 7/10; mas 11:30 Body Mass Index 37.20 (95.25 kg, 160.02 cm) jrd MDM: 11:49 REGULAR DIET PLASTIC HUMPHREY+DIET ordered. EDMS 11:50 REGULAR DIET PED PLASTIC HUMPHREY+DIET ordered. EDMS 13:22 Consult PFS/PSA/Manager Financial ordered. br1 13:22 Consult PFS/PSA/Manager Financial: Patient's case requires discussion with on-call br1 Psychiatrist ordered. 13:22 PSA/PFS to call Nursing Hyperion Developer, to enter patient data on [place] Safe [place] if patient br1 involuntarily admitted or transferred for SI or HI ordered. 13:22 Confirm accurate psychiatric medication list and times of last dosage ordered. br1 13:22 Detain Pt Until Medically/PFS Cleared ordered. br1 13:24 Acetaminophen Level Ordered. EDMS 13:24 Basic Metabolic Profile Ordered. EDMS 13:24 Complete Blood Count Ordered. EDMS 13:24 Drug Eval Toxicology ED Only Ordered. EDMS 13:24 Ethyl Alcohol (ethanol) Ordered. EDMS 13:24 Liver Profile Ordered. EDMS 13:24 Salicylate Level Ordered. EDMS 13:24 Thyroid Stimulating Hormone Ordered. EDMS 13:36 Financial registration complete. mm15 13:36 [facility] Payment Agreement was scanned into [employer] and attached to record. mm15 13:59 Consult PFS/PSA/Manager Financial complete. ml4 14:17 Consult PFS/PSA/Manager Financial: Patient's case requires discussion with on-call ml4 Psychiatrist complete. 14:17 PSA/PFS to call Nursing Hyperion Developer, to enter patient data on [place] Safe [place] if patient ml4 involuntarily admitted or transferred for SI or HI complete. 15:01 Complete Blood Count Reviewed. br1 15:01 Drug Eval Toxicology ED Only Reviewed. br1 15:36 Acetaminophen Level Reviewed. br1 15:36 Basic Metabolic Profile Reviewed. br1 15:36 Liver Profile Reviewed. br1 15:36 Salicylate Level Reviewed. br1 15:36 Thyroid Stimulating Hormone Reviewed. br1 15:36 Ethyl Alcohol (ethanol) Reviewed. br1 15:36 HCG, SERUM QUANTITATIVE Reviewed. br1 15:36 Consult PFS/PSA/Socail Worker: Cleared medically for eval ordered. br1 15:40 Consult PFS/PSA/Socail Worker: Cleared medically for eval complete. ml4 16:33 REGULAR DIET PLASTIC HUMPHREY+DIET ordered. EDMS 17:43 Admit to IM[facility]: ordered. EDMS 18:12 REGULAR DIET ordered. EDMS 18:13 MHE Legal paperwork was scanned into [employer] and attached to record. ml4 01/03 13:06 T-Sheet-- Draft Copy was scanned into [employer] and attached to record. gb Signatures: Dispatcher [employer] EDMS Halima Hernández, Reg Reg gb Rei, Gina, PSA PSA ml4 Joshua La MD MD br1 Soumya Luna RN RN sls1 Alistair Nunez mm15 Vick Gomez,RN RN mb9 The chart was reviewed and I authenticate all verbal orders and agree with the evaluation and treatment provided.Corrections: (The following items were deleted from the chart) 01/02 15:01 14:55 HCG, SERUM QUANTITATIVE+LAB ordered. EDMS EDMS Attachments: 13:36 DE-EM Payment Agreement mm15 01/03 13:06 T-Sheet-- Draft Copy gb Chart Complete MTDD
[2017-01-05 07:00] VITALS: BP 116/96
[2017-01-05] MEDS: PRENATAL VITAMIN TAB PO SCH (08:20)
[2017-01-05] MEDS: FLUoxetine 10 MG CAP PO SCH (08:20)
[2017-01-05] MEDS: CALCIUM CARBONATE 500 MG CHEW U/D PO PRN ×3 (08:20→20:52)
[2017-01-05 18:00] VITALS: BP 119/65
[2017-01-05] MEDS: ACETAMINOPHEN TAB 650MG DOSE (2X325MG) PO PRN (20:52)
[2017-01-05] MEDS: diphenhydrAMINE 50 MG CAP PO PRN (20:52)
[2017-01-05] MEDS ORDERED: MOM 30ML SUSPENSION UDC PO PRN (22:30)
[2017-01-06 06:19] VITALS: BP 115/55
[2017-01-06] MEDS: FLUoxetine 10 MG CAP PO SCH (08:13)
[2017-01-06] MEDS: CALCIUM CARBONATE 500 MG CHEW U/D PO PRN ×2 (08:13→20:24)
[2017-01-06] MEDS: PRENATAL VITAMIN TAB PO SCH (08:13)
[2017-01-06 18:00] VITALS: BP 125/79
[2017-01-06] MEDS: ACETAMINOPHEN TAB 650MG DOSE (2X325MG) PO PRN (20:23)
[2017-01-06] MEDS: diphenhydrAMINE 50 MG CAP PO PRN (20:24)
[2017-01-07 06:45] VITALS: BP 121/71
[2017-01-07] MEDS: FLUoxetine 10 MG CAP PO SCH (08:45)
[2017-01-07] MEDS: PRENATAL VITAMIN TAB PO SCH (08:46)
[2017-01-07] MEDS: CALCIUM CARBONATE 500 MG CHEW U/D PO PRN (08:46)
--- NOTE | 2017-01-07 10:24 | IPN ---
DATE: 01/05/2017 31-year-old female with history of bipolar disorder and depression. She is 22 weeks , was admitted with symptoms of depression, overwhelming anxiety and suicidal thoughts. MEDICATIONS: - Prozac 10 mg by mouth daily every morning - Benadryl 50 mg by mouth daily at bedtime as needed for insomnia SUBJECTIVE: I think I am feeling better. OBJECTIVE: Patient continues depressed, subjectively feels some degree of improvement. She is sleeping well with Benadryl at bedtime. She has no side effect from Prozac. Patient continues with some psychomotor retardation and restricted depression. MENTAL STATUS EXAMINATION: The patient is dressed in [facility]. The patient is cooperative during the exam. Has fair eye contact. Speech is slow and monotone. Mood is depressed and anxious. Affect is restricted. No delusions or hallucinations. Short and long term care social worker memory are intact. The patient is fully oriented. Associations are intact. Thinking is logical. Thought content is appropriate. The patient is able to contract for safety and denies suicidal or homicidal ideation during the interview. Insight and judgment are fair. ASSESSMENT: Bipolar disorder, depressed episode. PLAN: 1. Continue with Prozac 10 mg by mouth every morning. 2. Continue with Benadryl 50 mg by mouth at bedtime as needed for insomnia. 3. Continue with medication management, individual and group therapy.
[2017-01-07] MEDS ORDERED: FLUO10CA9 PO (11:18)
[2017-01-07] MEDS ORDERED: DIPH50CA PO (11:18)
[2017-01-07] MEDS ORDERED: TUMS500C PO (11:30)
--- NOTE | 2017-01-07 17:06 | IPN ---
DATE: 01/06/2017 31-year-old female with history of bipolar disorder and depression. She is 22 weeks . She was admitted with symptoms of severe depression, being overwhelmed by anxiety, and suicidal thoughts. MEDICATIONS: - Prozac 10 mg by mouth every morning - Benadryl 50 mg by mouth nightly as needed for insomnia SUBJECTIVE: "I feel much better." OBJECTIVE: Patient is improving. Patient's psychomotor retardation has significantly improved. Her facial expression is more jovial, is no longer restricted. Patient is interacting better with other patients and staff. Patient is able to contract for safety in our unit and denies suicidal or homicidal ideation. There is no evidence of psychotic symptoms. No auditory or visual hallucinations or delusions. Patient is tolerating well the pharmacological treatment. MENTAL STATUS EXAMINATION: [facility] is dressed [facility]. Patient is cooperative during exam, has good eye contact. Speech is normal in rate, volume, articulation, is coherent, and is spontaneous. Mood is depressed and anxious, but improved from admission. Affect is congruent with mood. No delusions or hallucinations. Short-term and long-term memory are fair. Patient is fully oriented. Associations are intact. Thinking is logical. Thought content is appropriate. Patient is denying suicidal or homicidal ideation during the interview. Insight and judgment has improved. ASSESSMENT: 1. Bipolar disorder, depressed episode. PLAN: 1. Continue with Prozac 10 mg by mouth every morning. 2. Continue with Benadryl 50 mg by mouth nightly. 3. Continue close observation.
--- NOTE | 2017-01-08 21:52 | MHDS ---
DATE OF ADMISSION: 01/02/2017 DATE OF DISCHARGE: 01/07/2017 HISTORY OF PRESENT ILLNESS: A 32-year-old female with history of bipolar disorder and depression, admitted to our unit on a 9.39 legal status. According to the chart, patient has stopped taking her medications due to being 22 weeks . Patient is requesting help because, in her opinion, she is "decompensating." "I have feelings of not wanting to live." She feels overwhelmed with anxiety. It is reported in the chart that she attempted to get in [facility] and placed back on her medications with "no luck." Patient was taking Prozac, Wellbutrin, Abilify, Ambien, Adderall, and Topamax in the past. Patient no longer is seeing a psychiatrist. She was previously seen by Dr. Kirkpatrick at [facility], but this office is now closed. Patient stated that was not willing to restart the medication without the approval of a psychiatrist. During interview today in our unit, patient reports feeling very depressed with high anxiety, having panic attacks with sweaty palms, tachycardia, palpitations, and tremors lasting for about 30 minutes, and it happens up to twice a week. Patient isolates. "I don't leave the house." "I feel tired all day." She reports very low energy. She does not care about activities of daily living (ADL). She feels hopeless and feels "I wish I do not wake up." Patient was diagnosed with bipolar disorder. Patient reports that most of her moods swings have to do with depression, but intermittently she gets periods of times with "ups." She says that during these times, she spends money, about 400-500 dollars, on her children's clothes. She also had problems with gambling 2016. She got into a 20,000 dollar debt. She also stated that she has tendency to drink alcohol when "I don't like to drink alcohol," and she reports more energetic. The above is when she has these episodes that she describes of "up." She also states that she has been most depressed mostly all the time after the of her fourth child. At that time she said was diagnosed with depression. She also stated that she never had these ups, downs before her child's . She reports takes Topamax for headaches since she had a traumatic brain injury (TBI) in 2009. She also reports that because of her "concentration problems," her physician prescribed Adderall. During the interview there is no evidence of psychotic symptoms. No auditory or visual hallucinations. LABORATORIES AT ADMISSION: CBC was unremarkable. CMP was within normal limits except the changes that one expects with a patient with albumin of 2.9. TSH was 0.3. HCG quantitative showed 1782. UDS was negative. Blood alcohol level was negative. HOSPITAL COURSE: Patient was admitted on a 9.39 legal status. After first interview and discussing with the patient medication alternatives, she says that Prozac has worked well in the past. Prozac could be a good choice since the teratogenic shows that has no problem with patients that are undergoing . She is now on the 23th week. We discuss pros and cons of the medication and also ask the patient to talk to her . She was agreeable to take the medication and therefore was started on 10 mg outpatient every morning. She also was requesting medication for sleep. She said that at home she was taking Benadryl and Tylenol PM with good success, so she was started on Benadryl 50 mg by mouth at bedtime. Patient had no complications and tolerating both of the medications well. Patient was able to sleep okay. By 01/07/2017, patient is significantly improved from admission. Patient feels much better. Patient does not feel depressed. Patient would like to go home and to continue her treatment as outpatient. Patient is in a stable condition. Denies suicidal or homicidal ideation. There is no evidence of psychotic symptoms. No auditory or visual hallucinations. A family meeting was held before discharge. Her is supportive. She was discharged then after the meeting in stable condition. MEDICATIONS AT DISCHARGE: - Prozac 10 mg by mouth every morning - Benadryl 50 mg by mouth at bedtime MENTAL STATUS EXAMINATION AT DISCHARGE: Patient is dressed in [facility]. Patient is calm and cooperative. Speech is clear, coherent with normal rate and is spontaneous. Patient has good eye contact. Mood is euthymic. Affect is appropriate and congruent with mood. Patient is oriented to time, place, person, and situation. Maintains attention and concentration correctly. Instant recall and recent and remote memory are intact. Thought processes are coherent, logical, and goal directed. Patient does not have auditory or visual hallucinations. Patient does not have paranoid, persecutory, somatic, grandiose, or yarsanism delusions. Patient denies suicidal or homicidal ideation. Judgment and insight are fair. DISCHARGE DIAGNOSIS: AXIS I: Bipolar disorder, depressed episode. AXIS II: Deferred. AXIS III: Status post traumatic brain injury and headaches. INSTRUCTIONS TO THE PATIENT: Patient is to continue taking her medications as prescribed and followup appointments. She is advised to maintain absolute sobriety from drugs and alcohol. Patient has scheduled an appointment for psychiatric medication management, individual psychotherapy.
== END 2017-01-07 11:50 | disposition home or self-care (01) | DRG 781 ==
LOC: M ED 11:27 → M PSY 20:48
PROVIDERS: ADMIT Psychiatry & Neurology Psychiatry; ATTEND Psychiatry & Neurology Psychiatry
DX: O99.342 Other mental disorders complicating pregnancy, second trimester (principal); O98.512 Other viral diseases complicating pregnancy, second trimester; F31.9 Bipolar disorder, unspecified; R51 Headache; O99.282 Endocrine, nutritional and metabolic diseases complicating pregnancy, second trimester; O99.612 Diseases of the digestive system complicating pregnancy, second trimester; R94.6 Abnormal results of thyroid function studies; K21.9 Gastro-esophageal reflux disease without esophagitis; B00.1 Herpesviral vesicular dermatitis; Z83.3 Family history of diabetes mellitus; Z82.49 Family history of ischemic heart disease and other diseases of the circulatory system; Z81.8 Family history of other mental and behavioral disorders; Z3A.22 22 weeks gestation of pregnancy; Z87.820 Personal history of traumatic brain injury; Z79.899 Other long term (current) drug therapy

== ENCOUNTER 2017-04-11 18:46 | Outpatient (CLI) | payer OTHER ==
[~2017-04-11] VITALS: Ht 160 cm; Wt 94.0 kg
[~2017-04-11 18:46] MED LIST changes: +ACET25TA5 PO; +DIPH25CA PO; +DIPH50CA PO; +FLUO10CA9 PO; +PRENTAB55 PO; +PROM25TA PO; +TUMS500C PO
[2017-04-11] MEDS ORDERED: ACET50TA PO (19:02)
[2017-04-11 19:03] VITALS: BP 126/79
[2017-04-11] MEDS ORDERED: FIORICET TAB PO ONE (20:15)
== END 2017-04-11 22:30 | disposition home or self-care (01) ==
LOC: M LDO 18:46
PROVIDERS: ATTEND Obstetrics & Gynecology
DX: O47.03 False labor before 37 completed weeks of gestation, third trimester (principal); Z3A.34 34 weeks gestation of pregnancy; Z88.5 Allergy status to narcotic agent

== ENCOUNTER 2017-04-30 23:01 | Outpatient (CLI) | payer OTHER ==
[~2017-04-30] VITALS: Ht 160 cm; Wt 96.0 kg
[~2017-04-30 23:01] MED LIST changes: +ACET50TA PO
[2017-04-30 23:14] VITALS: BP 132/86
[2017-05-01 00:26] VITALS: BP 110/65
== END 2017-05-01 00:31 | disposition home or self-care (01) ==
LOC: M LDO 23:01
PROVIDERS: ATTEND Student in an Organized Health Care Education/Training Program
DX: O47.1 False labor at or after 37 completed weeks of gestation (principal); Z3A.39 39 weeks gestation of pregnancy; O99.343 Other mental disorders complicating pregnancy, third trimester; O99.213 Obesity complicating pregnancy, third trimester; Z88.5 Allergy status to narcotic agent; Z79.899 Other long term (current) drug therapy; F32.9 Major depressive disorder, single episode, unspecified; E66.9 Obesity, unspecified

== ENCOUNTER 2017-05-07 11:34 | Inpatient (IN) | payer OTHER ==
[~2017-05-07] VITALS: Ht 160 cm; Wt 97.0 kg
[2017-05-07] VITALS (30 sets, daily range): BP systolic 104–138; BP diastolic 56–92
[2017-05-07] MEDS ORDERED: LR 1,000 ML IV SCH (11:41)
[2017-05-07] MEDS ORDERED: ZOLO100T PO (11:45)
[2017-05-07] MEDS ORDERED: FIOR1CAP PO (11:45)
[2017-05-07] MEDS ORDERED: OXYTOCIN DRIP 30 UNITS in APPROPRIATE DILUENT 1 EA IV SCH (11:45)
[2017-05-07] MEDS ORDERED: OMEP10CASR PO (11:45)
[2017-05-07] MEDS ORDERED: CALCIUM GLUCONATE 1,000 MG in D5W MINI-BAG PLUS 100 ML IV PRN (11:45)
[2017-05-07] MEDS ORDERED: TUMS500C PO (11:45)
[2017-05-07] MEDS ORDERED: MAG Sulf (L&D) 4 GM/100 ML 4 GM in APPROPRIATE DILUENT 1 EA IV ONE (12:00)
[2017-05-07] MEDS: LR 1,000 ML IV SCH (12:25)
[2017-05-07 12:50] LABS: MEAN CORPUSCULAR HEMOGLOBIN 25.3 pg (27.0-33.0); MEAN CORPUSCULAR VOLUME 76.7 fl (80.0-96.0); RED CELL DISTRIBUTION WIDTH 14.9 % (11.5-14.5); WHITE BLOOD COUNT 6.8 K/mm3 (4.0-10.0)
[2017-05-07] MEDS: MAG Sulf (OBGYN) 20GM/500ML 20,000 MG in APPROPRIATE DILUENT 1 EA IV SCH ×2 (13:00→21:52)
[2017-05-07] MEDS ORDERED: HYDROmorphone HCL 1 MG/ML SYRINGE (J1170) IV PRN ×2 (17:45)
[2017-05-07 19:22] LABS: ANION GAP 10 MEQ/L (8-16); BLOOD UREA NITROGEN 10 MG/DL (7-18); CARBON DIOXIDE LEVEL 22 MEQ/L (21-32); CHLORIDE LEVEL 105 MEQ/L (98-107); GLOMERULAR FILTRATION RATE > 60.0 (>60); GLUCOSE, FASTING 76 MG/DL (70-105); POTASSIUM SERUM 4.1 MEQ/L (3.5-5.1); SODIUM LEVEL 137 MEQ/L (136-145)
[2017-05-07 19:23] LABS: ALBUMIN 2.8 GM/DL (3.2-5.2); ALKALINE PHOSPHATASE 209 U/L (45-117); ALT/SGPT 18 U/L (12-78); AST/SGOT 24 U/L (15-37); BILIRUBIN,TOTAL 0.3 MG/DL (0.2-1.0); CALCIUM LEVEL 8.8 MG/DL (8.5-10.1); TOTAL PROTEIN 6.8 GM/DL (6.4-8.2); URIC ACID 5.4 MG/DL (2.6-6.0)
[2017-05-07] MEDS ORDERED: HYDROmorphone 2 MG TAB PO ONE (20:45)
[2017-05-07] MEDS ORDERED: SERTRALINE HCL 50 MG TAB PO SCH (21:00)
[2017-05-07] MEDS ORDERED: FENTANYL 2MCG/ML ROPIVACAINE 0.2% IN 0.9% NACL 200ML IVBAG As Ordered ONE (23:35)
[2017-05-08] VITALS (41 sets, daily range): BP systolic 97–148; BP diastolic 48–94
[2017-05-08 00:26] LABS: MEAN CORPUSCULAR HEMOGLOBIN 24.5 pg (27.0-33.0); MEAN CORPUSCULAR HGB CONC 31.5 g/dl (32.0-36.5); MEAN CORPUSCULAR VOLUME 77.7 fl (80.0-96.0); RED CELL DISTRIBUTION WIDTH 14.8 % (11.5-14.5); WHITE BLOOD COUNT 8.8 K/mm3 (4.0-10.0)
[2017-05-08] MEDS ORDERED: ONDANSETRON 4MG/2ML VIAL (J2405) IV PRN ×2 (01:00→07:00)
[2017-05-08] MEDS ORDERED: EPIDURAL/PCA KEYS XX PRN (01:00)
[2017-05-08] MEDS ORDERED: ePHEDrine SULFATE 25 MG/5 ML(5MG/ML) SYRINGE IV PRN (01:00)
[2017-05-08] MEDS ORDERED: diphenhydrAMINE INJ 50MG/ML VIAL (J1200) IV PRN (01:00)
[2017-05-08] MEDS ORDERED: NALOXONE INJ 0.4 MG/1 ML VIAL (J2310) IV PRN (01:00)
[2017-05-08] MEDS ORDERED: FENTANYL/ROPIVACAINE/NACL BAG 200 ML EPIDURAL SCH ×2 (01:00)
[2017-05-08] MEDS ORDERED: EPIDURAL COMMENT XX SCH (01:00)
[2017-05-08] MEDS ORDERED: REFRIGERATOR IV KEYS XX PRN (01:00)
[2017-05-08] MEDS ORDERED: LACTATED RINGER'S 1000 ML IV PRN (01:00)
[2017-05-08] MEDS: LR 1,000 ML IV SCH ×2 (01:01→19:00)
[2017-05-08] MEDS ORDERED: ONDANSETRON 4MG/2ML VIAL (J2405) IV ONE (01:30)
[2017-05-08] MEDS: MAG Sulf (OBGYN) 20GM/500ML 20,000 MG in APPROPRIATE DILUENT 1 EA IV SCH (02:22)
[2017-05-08] MEDS ORDERED: OXYTOCIN DRIP 30 UNITS in APPROPRIATE DILUENT 1 EA IV SCH (06:46)
[2017-05-08] MEDS ORDERED: MEASLES,MUMPS,RUBELLA VACCINE INJ (MMR-II) (90707) SC SCH (07:00)
[2017-05-08] MEDS ORDERED: PROMETHAZINE 25 MG TAB PO PRN (07:00)
[2017-05-08] MEDS ORDERED: DIBUCAINE 1% OINTMENT 30GM TOP PRN (07:00)
[2017-05-08] MEDS: PRENATAL VITAMIN TAB PO SCH (09:00)
[2017-05-08] MEDS ORDERED: SERTRALINE HCL 50 MG TAB PO SCH (09:00)
[2017-05-08] MEDS: IBUPROFEN 800 MG TAB PO PRN ×2 (09:36→19:55)
[2017-05-08] MEDS: DOCUSATE SODIUM 100 MG CAP PO SCH ×2 (09:36→21:03)
--- NOTE | 2017-05-08 10:36 | IPNPDOC ---
Text Note Date of Service The patient was seen on 05/08/17. NOTE [id number] @ 0730- Report from Dr. Cunningham [id number] @ 1010 S: pt resting in bed changing the babes diaper with spouse present. Report she feels much better and her SAUCEDO has resolved, but she feels weak. Denies SAUCEDO, visual changes, n/v and RUQ pain. O: VS- WNL, afebrile magnesium 2 gm/hr, LR @ 75 ml/hr BS- CTA HR- RRR Fundus @ U-1, moderate bleeding DTRs- +1, SCDs in place on bilat LE Urine output- 200 mls in the last hour Tolerating a clear liquid diet formula feeding A: 32 yo s/p without laceration [id number] @ 0631 in stable condition caring for her babe without difficulty. P: stop Mag @ 0631 on [id number], RN continue to monitor and assess patient Q 1 hour and report any severe range BPs (160/110) to provider jenn Jean-Claude SILVEIRA, I+O Jean-Claude SILVEIRA I+O Laboratory Tests 05/07/17 12:23 Red Blood Count 4.34, Mean Corpuscular Volume 76.7 L, Mean Corpuscular Hemoglobin 25.3 L, Mean Corpuscular Hemoglobin Concent 33.0, Red Cell Distribution Width 14.9 H, Calcium Level 8.8, Aspartate Amino Transf (AST/SGOT) 24, Alanine Aminotransferase (ALT/SGPT) 18, Lactate Dehydrogenase 206, Alkaline Phosphatase 209 H, Total Bilirubin 0.3, Uric Acid 5.4, Total Protein 6.8, Albumin 2.8 L 05/08/17 00:13 Red Blood Count 4.62, Mean Corpuscular Volume 77.7 L, Mean Corpuscular Hemoglobin 24.5 L, Mean Corpuscular Hemoglobin Concent 31.5 L, Red Cell Distribution Width 14.8 H Vital Signs Date Time Temp Pulse Resp B/P (MAP) Pulse Ox O2 Delivery O2 Flow Rate FiO2 05/08/17 07:48 101 145/86 (105) 05/08/17 07:48 98.4 05/08/17 07:03 16 05/07/17 22:30 99 05/07/17 22:30 Room Air I&O- Last 24 Hours up to 6 AM 05/08/17 06:00 Intake Total 1365 ml Output Total 2625 ml Balance -1260 ml BACILIO MORALES CNM May 08, 2017 10:36
[2017-05-08] MEDS ORDERED: miSOPROStol 200 MCG TAB (S0191) PR STA (10:51)
[2017-05-08] MEDS: ACETAMINOPHEN 500 MG TAB PO PRN (12:18)
[2017-05-08] MEDS: PERCOCET 5MG/325MG TAB PO PRN ×2 (16:55→21:02)
[2017-05-08] MEDS: SERTRALINE HCL 50 MG TAB PO SCH (21:03)
[2017-05-09] VITALS (9 sets, daily range): BP systolic 107–131; BP diastolic 56–80
[2017-05-09] MEDS: PERCOCET 5MG/325MG TAB PO PRN ×3 (01:43→16:32)
[2017-05-09] MEDS ORDERED: diphenhydrAMINE 25 MG CAP PO ONE (02:15)
[2017-05-09] MEDS: LR 1,000 ML IV SCH (02:21)
[2017-05-09] MEDS: MAG Sulf (OBGYN) 20GM/500ML 20,000 MG in APPROPRIATE DILUENT 1 EA IV SCH (02:21)
[2017-05-09] MEDS: IBUPROFEN 800 MG TAB PO PRN ×3 (05:28→19:49)
--- NOTE | 2017-05-09 07:15 | IPNPDOC ---
Text Note Date of Service The patient was seen on 05/09/17. NOTE PPD1 prog note, off Mag Sulfate now for several hours States feeling well, no complaints. No heavy VB. Pain controlled. Voiding, ambulatory. Bonding well and bottle feeding well. Denies SAUCEDO or vis changes or CP/SOB/LP. VS reviewed, AF CTAB RRR Ut at U-2, firm Ext no CCE a/p: Doing well. Likely d/c tomorrow. Sessions Jean-Claude DOLL, I+O VSJean-Claude I+O Vital Signs Date Time Temp Pulse Resp B/P (MAP) Pulse Ox O2 Delivery O2 Flow Rate FiO2 05/09/17 06:00 98.9 82 20 131/76 (94) 98 Room Air I&O- Last 24 Hours up to 6 AM 05/09/17 05:59 Intake Total 2645 ml Output Total 5300 ml Balance -2655 ml ZARIA HOLGUIN MD May 09, 2017 07:15
[2017-05-09] MEDS: DOCUSATE SODIUM 100 MG CAP PO SCH ×2 (08:17→20:57)
[2017-05-09] MEDS: PRENATAL VITAMIN TAB PO SCH (08:17)
[2017-05-09] MEDS ORDERED: diphenhydrAMINE 50 MG CAP PO PRN (12:15)
[2017-05-09] MEDS ORDERED: FEXOFENADINE 60 MG TAB PO PRN (20:15)
--- NOTE | 2017-05-09 20:21 | CR.PDOC ---
[facility] Consultation Consultation DATE OF CONSULTATION: May 07, 2017 at 11:34 PRIMARY CARE PHYSICIAN: Toi] REFERRING PROVIDER: Toi] ATTENDING PHYSICIAN: Dr. Birmingham] REASON FOR CONSULTATION/CHIEF COMPLAINT: [Rash]. HISTORY OF PRESENT ILLNESS: [32-year-old female with rash involving the interdigital area of the hands bilaterally. Episode occurred after delivery of her son. She describes rash as itchy, painful at times and bilateral hand swelling. No prior episodes to this event. Unable to recall any exposures. Denies fevers, chills, nausea, vomiting, diarrhea. Good appetite. She has tried Benadryl with some limited response but feels it makes her drowsy.]. ALLERGIES: Please see below. HOME MEDICATIONS: Please see below. PAST MEDICAL HISTORY: 1. [Depression. PAST SURGICAL HISTORY: wisdom teeth, D&C FAMILY HISTORY: Noncontributory SOCIAL HISTORY: No alcohol, no tobacco use, illicit drug use REVIEW OF SYSTEMS: CONSTITUTIONAL: No fever, chills, weight loss, nausea or vomiting . HEENT: No headache, lightheadedness, blurred or loss of vision. No difficulty with speech or swallow. CARDIOVASCULAR: No chest pain, palpitations, paroxysmal nocturnal dyspnea or lower extremity edema RESPIRATORY: No cough, productive sputum, wheeze or hemoptysis GENITOURINARY: No dysuria, frequency, or discharge MUSCULOSKELETAL: No bone, muscle or joint pain. GASTROINTESTINAL: No Nasuea, vomitting, change in appetite. Bowel movements are regular without hematochezia or melena. No bladder or bowel incontinence. SKIN: Blistery rash as described above NEUROLOGICAL: No blurred vision, headaches, parasthesias or paralysis PSYCHIATRIC: No depression, anxiety, audiovisual hallucinations. No suicidal ideations. ENDOCRINE: Denies history of diabetes or thyroid disorder. No history of endocrine abnormalities. HEMATOLOGIC/LYMPHATIC: No lumpbs, bumps or swelling of neck, axilla or groin. No night sweats or weight loss. PHYSICAL EXAMINATION: VITAL SIGNS: Please see below. GENERAL APPEARANCE: [No acute distress, pleasant]. HEENT: [Unremarkable]. RESPIRATORY: [Clear auscultation]. CARDIOVASCULAR: [Regular rate and rhythm]. ABDOMEN: [Soft, nontender]. EXTREMITIES: [Few fluid-filled blisters between fingers and posterior/dorsal hands. Couple associated urticaria]. NEUROLOGICAL: [Intact and no motor sensory deficits]. LABORATORY DATA: Repeat CBC and liver profile ASSESSMENT/PLAN: 1. Urticaria of unknown etiology with blisters. Recommend Chantale [address] order in the EMR. This is most likely self-limiting. 2. Preeclampsia: day #1. She appears to be getting along quite well. We'll get him repeat a CBC and liver profile as indicated above since she may be at risk for HELLP syndrome. Otherwise, she appears to be stable. Thank you for involving us in the care of this patient. If there is any further questions regarding this consultation. Please feel free to contact the hospitalist service. Vital Signs/I&O Vital Signs Date Time Temp Pulse Resp B/P (MAP) Pulse Ox O2 Delivery O2 Flow Rate FiO2 05/09/17 18:29 98.7 78 18 123/65 (84) 05/09/17 17:02 Room Air 05/09/17 14:20 100 I&O- Last 24 Hours up to 6 AM 05/09/17 06:00 Intake Total 2645 ml Output Total 5300 ml Balance -2655 ml Allergies Coded Allergies: Morphine (Verified Allergy, Severe, HIVES AND TROUBLE BREATHING, 01/24/16) Home Medications Scheduled Multivitamins/ ( 19) 1 Tab Tab, 1 TAB PO DAILY for supplement, ( Reported) Omeprazole (PriLOSEC) 10 Mg Capcr, 10 MG PO DAILY, (Reported) Sertraline Hcl (Zoloft) 100 Mg Tab, 150 MG PO DAILY, (Reported) Scheduled PRN Acetamin/Butalbital/Caffeine (Fioricet 50-300-40 mg) 1 Cap Cap, 2 CAP PO PRN PRN for HEADACHE, (Reported) Calcium Carbonate (Tums) 500 Mg Chw, 1,000 MG PO PRN PRN for HEARTBURN, ( Reported) Miscellaneous Medications Acetaminophen (Mapap) 500 Mg Tab, 650 MG PO, (Reported) BAYLEE SALGADO DO May 09, 2017 20:21
[2017-05-09 20:27] LABS: MEAN CORPUSCULAR HEMOGLOBIN 25.5 pg (27.0-33.0); MEAN CORPUSCULAR HGB CONC 31.6 g/dl (32.0-36.5); MEAN CORPUSCULAR VOLUME 80.8 fl (80.0-96.0); RED CELL DISTRIBUTION WIDTH 15.2 % (11.5-14.5); WHITE BLOOD COUNT 8.9 K/mm3 (4.0-10.0)
[2017-05-09 20:45] LABS: ALBUMIN/GLOBULIN RATIO 0.63 (1.00-1.93); ALKALINE PHOSPHATASE 158 U/L (45-117); ALT/SGPT 13 U/L (12-78); AST/SGOT 15 U/L (15-37); BILIRUBIN,DIRECT < 0.1 MG/DL (0.0-0.2); BILIRUBIN,TOTAL 0.2 MG/DL (0.2-1.0); TOTAL PROTEIN 5.2 GM/DL (6.4-8.2)
[2017-05-09] MEDS: SERTRALINE HCL 50 MG TAB PO SCH (20:58)
[2017-05-10] MEDS: ACETAMINOPHEN 500 MG TAB PO PRN (01:10)
[2017-05-10 02:11] VITALS: BP 139/78
[2017-05-10 05:54] VITALS: BP 107/59
[2017-05-10] MEDS: IBUPROFEN 800 MG TAB PO PRN (06:18)
[2017-05-10] MEDS: PRENATAL VITAMIN TAB PO SCH (09:00)
[2017-05-10] MEDS: DOCUSATE SODIUM 100 MG CAP PO SCH (09:00)
[2017-05-10] MEDS ORDERED: COLA100C3 PO (13:10)
[2017-05-10] MEDS ORDERED: IBUP-1114 PO (13:14)
[2017-05-10] MEDS ORDERED: PRENTAB9 PO (13:14)
[2017-05-10] MEDS ORDERED: ANUS2.5C2 TOP (13:14)
[2017-05-10] MEDS ORDERED: OXYC1TAB23 PO (13:14)
[2017-05-10] MEDS ORDERED: ACET50TA PO (13:14)
[2017-05-10] MEDS ORDERED: ALLE180T33 PO (13:15)
--- NOTE | 2017-05-10 22:53 | DSES ---
DATE OF ADMISSION: 05/07/2017 DATE OF DISCHARGE: 05/10/2017 This lady is a 32-year-old 7, now para 5 admitted for induction of labor because of severe range blood pressures and pre-eclampsia. She was on magnesium sulfate as well as induction of labor with Pitocin. With epidural in place had a spontaneous vaginal delivery, male 7 pounds 10 ounces, 3470 grams, of nine and nine at 1 and 5 minutes respectively. She had no extensions tears or lacerations. On her day #2, we discussed phlebitis, cystitis, mastitis, endometritis and cellulitis, diet, exercise, pain management, perineal, breast and wound care. Admitting hemoglobin 11.0, hematocrit 33.3 and platelets are 174. Discharge hemoglobin 8.8. Hematocrit 27.9 and platelets are 154. On discharge her blood pressure was 107/59, respirations 16, pulse 69, temperature 98.1. The rest of her examination was unremarkable. She was normocephalic, atraumatic. Neck: Full range of motion. Pupils equal and reactive to light. No evidence of right upper quadrant pain, visual disturbances. Her reflexes were normal, upper and lower and there is no pedal edema. Her chest was clear bilaterally to bases. No wheezes or rhonchi. Distal pulses are symmetric. No evidence of deep venous thrombosis (DVT), pulmonary embolism (PE) or superficial phlebitis. No costovertebral angle (CVA) tenderness. Uterus 2 below. Lochia is moderate. Four quadrant bowel sounds are noted. No rashes, lesions or pruritus. No arthralgia or myalgia. No complaints of cough, wheezes, shortness of breath or dyspnea on exertion. No chest pain, not bleeding. Neuro complete. No incontinence, no urgency or frequency. No nausea, vomiting, diarrhea or constipation. No diabetic issues. She does not smoke or drink or abuse drugs. . There is no domestic violence. In summary, we have a term gestation with severe range blood pressures with pre-eclampsia admitted for induction of labor, delivered a life male infant, had 24 hours of mag sulfate, discontinued. Maintaining normalized blood pressures and no evidence of features of preeclampsia. Discharged to followup for blood pressure check in 2 weeks in the office and 6 weeks for check. Medications given at discharge.
== END 2017-05-10 14:10 | disposition home or self-care (01) | DRG 775 ==
LOC: M LDO 11:34 → M LDI 11:35 → M OBS 05-08 08:41
PROVIDERS: ADMIT Obstetrics & Gynecology; ATTEND Obstetrics & Gynecology
PROC: 3E033VJ Introduction of Other Hormone into Peripheral Vein, Percutaneous Approach (ICD-10-PCS; 2017-05-07)
PROC: 10E0XZZ Delivery of Products of Conception, External Approach (ICD-10-PCS; principal; 2017-05-08)
DX: O14.14 Severe pre-eclampsia complicating childbirth (principal); Z37.0 Single live birth; O48.0 Post-term pregnancy; Z3A.40 40 weeks gestation of pregnancy; F32.9 Major depressive disorder, single episode, unspecified; Z79.899 Other long term (current) drug therapy; Z88.5 Allergy status to narcotic agent; L50.9 Urticaria, unspecified; O99.344 Other mental disorders complicating childbirth; O99.73 Diseases of the skin and subcutaneous tissue complicating the puerperium

== ENCOUNTER 2017-10-27 12:07 | Emergency (ER) | payer OTHER ==
[~2017-10-27] VITALS: Ht 160 cm; Wt 100.0 kg
[~2017-10-27 12:07] MED LIST changes: +ABIL1TAB13 PO; -ABIL2TAB2 PO; +ACET25TA12 PO; -ACET25TA5 PO; +ALLE180T33 PO; +ANUS2.5C2 TOP; +COLA100C5 PO; +FIOR1CAP PO; +IBUP-1114 PO; +LUNE3TAB36 PO; -LUNE3TAB48 PO; +OMEP10CASR PO; +OXYC1TAB23 PO; +PRENTAB9 PO; +TOPA100T12 PO; -TOPA100T8 PO; -TOPI50TA4 PO; +TOPI50TA9 PO; +ZOLO100T PO
[2017-10-27] MEDS ORDERED: ZOLO100T PO (12:18)
[2017-10-27] MEDS ORDERED: TRAZ300T2 PO (12:18)
[2017-10-27] MEDS ORDERED: LATU80TA PO (12:18)
[2017-10-27] MEDS ORDERED: NITROGLYCERIN 0.4 MG SUBL TABLET SL STA (12:31)
[2017-10-27 12:42] VITALS: BP 131/80
[2017-10-27] MEDS ORDERED: ASPIRIN 81 MG CHEW TABLET PO ONE (12:45)
[2017-10-27 12:56] LABS: BASO % 0.5 % (0.0-1.0); EOS # 0.1 10^3/uL (0.0-0.50); EOS % 1.8 % (0.0-3.0); IMMATURE GRANULOCYTE % 0.5 % (0-0); LYMPH # 1.9 10^3/uL (1.5-4.5); LYMPH % 29.2 % (24.0-44.0); MEAN CORPUSCULAR HEMOGLOBIN 27.3 pg (27.0-33.0); MEAN CORPUSCULAR HGB CONC 33.3 g/dl (32.0-36.5); MONO # 0.4 10^3/uL (0.0-0.8); MONO % 6.1 % (0.0-5.0); NEUTROPHILS # 4.1 10^3/uL (1.8-7.7); NEUTROPHILS % 61.9 % (36.0-66.0); PLATELET COUNT, AUTOMATED 203 10^3/uL (150-450); RED CELL DISTRIBUTION WIDTH 13.2 % (11.5-14.5); WHITE BLOOD COUNT 6.6 10^3/uL (4.0-10.0)
[2017-10-27 13:18] LABS: ALBUMIN 3.8 GM/DL (3.2-5.2); ALBUMIN/GLOBULIN RATIO 0.81 (1.00-1.93); ALKALINE PHOSPHATASE 110 U/L (45-117); ALT/SGPT 140 U/L (12-78); ANION GAP 11 MEQ/L (8-16); AST/SGOT 99 U/L (7-37); BILIRUBIN,DIRECT < 0.1 MG/DL (0.0-0.2); BILIRUBIN,TOTAL 0.5 MG/DL (0.2-1.0); BLOOD UREA NITROGEN 10 MG/DL (7-18); CARBON DIOXIDE LEVEL 22 MEQ/L (21-32); CHLORIDE LEVEL 102 MEQ/L (98-107); CREATININE FOR GFR 0.66 MG/DL (0.55-1.02); GLOMERULAR FILTRATION RATE > 60.0 (>60); GLUCOSE, FASTING 146 MG/DL (70-105); POTASSIUM SERUM 3.8 MEQ/L (3.5-5.1); SODIUM LEVEL 135 MEQ/L (136-145); TOTAL PROTEIN 8.5 GM/DL (6.4-8.2)
[2017-10-27] MEDS ORDERED: ISOVUE-370 76% 100ML VIAL (Q9967) As Ordered ONE (13:37)
[2017-10-27] MEDS ORDERED: NS 500 ML IV ONE (14:30)
--- NOTE | 2017-10-27 14:36 | REP ---
REASON: Dyspnea. COMPARISON: None. CONTRAST: 100 mL Isovue 370. There is excellent visualization of the pulmonary arterial vasculature. There are no focal filling defects present that would be considered consistent with pulmonary emboli. There are no pleural or pericardial effusions. There is no mediastinal or hilar adenopathy. The imaged osseous structures are within normal limits. The imaged upper abdomen shows probable hepatomegaly and diffuse fatty infiltration of the liver. Evaluation of the lung ontiveros show them to be clear. IMPRESSION: No evidence of a pulmonary embolus or other acute cardiopulmonary disease. There is evidence to suggest hepatomegaly and diffuse fatty infiltration of the liver which should be correlated clinically. Signed by Edmundo Hyde DO 10/27/2017 02:48 P
[2017-10-27] MEDS ORDERED: ACETAMINOPHEN TAB 650MG DOSE (2X325MG) PO ONE (18:00)
[2017-10-27 19:24] VITALS: BP 143/84
--- NOTE | 2017-10-28 07:13 | ECGEPIP ---
Stationary ECG Study [facility] - ED Test Date: 2017-10-27 Pat Name: ANA BENZ Department: Room: - Gender: F Scarfer: erika : 1985 Requested By: NIMO Mclain Order Number: [id number] Reading MD: Antonio Montgomery Measurements Intervals [place] Rate: 99 P: 16 [place]: 160 QRS: 20 QRSD: 98 T: 34 QT: 352 QTc: 452 Interpretive Statements SINUS RHYTHM NO PRIORS FOR COMPARISON Electronically Signed On 10-28-2017 7:13:27 EST by Antonio Montgomery
--- NOTE | 2017-10-28 07:18 | ECGEPIP ---
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
--- NOTE | 2017-10-28 12:51 | ED PDOC ---
Post-Departure Follow-Up javier sherman faxed formal report of cta for fu Beverly Valenzuela MD Oct 28, 2017 12:51
--- NOTE | 2017-10-31 18:57 | REP ---
REASON: Chest pain. PRIORS: None. FINDINGS: The superior mediastinal structures are midline. The cardiac silhouette is unremarkable in size, shape, and position. The diaphragmatic surfaces of the lungs are regular, and the costophrenic angles are clear. The pulmonary ontiveros are clear. The imaged osseous structures are intact. IMPRESSION: There is no acute cardiopulmonary disease. Signed by Edmundo Hyde DO 10/31/2017 07:40 P
== END 2017-10-27 19:40 | disposition home or self-care (01) ==
LOC: M ED 12:07
DX: R07.9 Chest pain, unspecified (principal); I45.2 Bifascicular block; F99 Mental disorder, not otherwise specified; F17.200 Nicotine dependence, unspecified, uncomplicated; Z82.49 Family history of ischemic heart disease and other diseases of the circulatory system; Z79.899 Other long term (current) drug therapy; Z88.5 Allergy status to narcotic agent
CPT/HCPCS: 71020; 71275; 80048; 80076; 82550; 82553; 83690; 85025; 93005; 93041; 94760; 99285; Q9967